=== PATIENT | male | born 1950 | race Caucasian/White ===

== ENCOUNTER 2016-10-17 15:35 | Emergency (ER) | payer MEDICARE, OTHER ==
[~2016-10-17 15:35] MED LIST: ASPI325T PO; BENZ100 PO; GABA300C5 PO; IPRASOL NEB; LEVA750T PO; LISI-515 PO; METO50TA PO; MUCI600T PO; NOVOLOGP2 SQ; PRED10 PO; SYMB80AE INH; VENTAER INH
[2016-10-17 15:39] VITALS: BP 205/115; PULSE 92; RESP 12; TEMP 97.6; O2SAT 95
--- NOTE | 2016-10-17 17:21 | PD ---
HPI Chief Complaint: Injury Time Seen by Provider: 17:17 Travel History International Travel<30 days: No Contact w/Intl Traveler<30days: No Traveled to known affect area: No History of Present Illness HPI Patient comes in for evaluation of left arm swelling that began around 1:00 this afternoon. Patient states he just laid down notices arm starting to swell and reports it has since improved. Patient reports an achiness in his proximal left arm that began approximately an hour ago. Patient denies doing anything for this prior coming to the emergency department. Patient states he contacted his insurance hotline and it was recommended coming to the emergency department to rule out a blood clot. Patient reports associated tingling in the arm. Denies any chest pain, shortness of breath, diaphoresis, nausea, vomiting, or known injury. Patient does report he just started taking clindamycin today for infection on his bilateral lower extremities and abdomen. PFSH Past Medical History Hx Anticoagulant Therapy: Yes (ASPIRIN) Arthritis: No Asthma: Yes Autoimmune Disease: No Anxiety: No Depression: No Heart Rhythm Problems: Yes (possible afib) Cancer: No Cardiovascular Problems: Yes High Cholesterol: Yes Chemotherapy: No Chest Pain: No Congestive Heart Failure: No COPD: Yes Cerebrovascular Accident: Yes Coronary Artery Disease: Yes (valve and cabag) Diabetes: Yes Diminished Hearing: No Diverticulitis: Yes Endocrine: Yes Gastrointestinal Disorders: Yes GERD: No Genitourinary: Yes Hiatal Hernia: No Hypertension: Yes Immune Disorder: No Implanted Vascular Access Dvce: Yes Kidney Stones: Yes Musculoskeletal: Yes Neurologic: Yes (MULTIPLE TIA'S) Psychiatric: No Reproductive: No Respiratory: Yes (COPD) Migraines: No Myocardial Infarction: Yes Radiation Therapy: No Renal Failure: Yes (stage 4 ) Seizures: No Sickle Cell Disease: No Sleep Apnea: No Thyroid Disease: No Ulcer: No Past Surgical History Abdominal Surgery: Yes (HERNIA REPAIR IN 2006) AICD: Yes Arteriovenous Shunt: No Body Medical Devices: MECHANICAL HEART VALVE Cardiac Surgery: Yes (CABG AND HEART VALVE REPLACEMENT IN 2010) Coronary Artery Bypass Graft: Yes (X3) Insulin Pump: No Joint Replacement: No Pacemaker: No Thoracic Surgery: Yes (LAMINECTOMY IN 1984) Valve Replacement: Yes (AORTIC) Other Surgery: Yes Social History Alcohol Use: Yes (SOCIALLY) Tobacco Use: Yes Substance Use: No Allergies-Medications (Allergen,Severity, Reaction): Coded Allergies: HMG-CoA Reductase Inhibitors (Verified Allergy, Severe, Twitching, ) Horse Serum Proteins (Verified Allergy, Severe, CHILDHOOD, DOESN'T REMEMBER., 08/23/16) Metformin (Verified Allergy, Mild, ITCHING/RASH, 08/23/16) Reported Meds & Prescriptions Reported Meds & Active Scripts Active Prednisone 10 Mg Tab 10 Mg PO DAILY Take 4 tabs x 5 days, then 3 tabs x 3 days, then 2 tabs x 3 days, then 1 tab x 3 days then stop. Symbicort Inh (Budesonide/Formoterol Fumarate) 80-4.5 Mcg/Act Aero 2 Puff INH Q12HR Levaquin (Levofloxacin) 750 Mg Tab 750 Mg PO DAILY Duoneb (Ipratropium-Albuterol Neb) 0.5-2.5 Mg/3 Ml Neb 1 Ampule NEB Q6HR WHILE AWAKE NEB Mucinex ER 12 HR (Guaifenesin) 600 Mg Jahaira 600 Mg PO BID Tessalon Perles (Benzonatate) 100 Mg Cap 100 Mg PO TID Reported Gabapentin 300 Mg Cap 300 Mg PO BID Metoprolol Tartrate 50 Mg Tab 50 Mg PO BID Lisinopril 20 Mg Tab 20 Mg PO DAILY Novolog Inj (Insulin Aspart) 1,000 Unit/10 Ml Vial 1-9 Units SQ TIDAC Max dose at bedtime:( )units; sugars less than 70,(0)units; sugars 150-199,(1) unit; sugars 200-249,(3) units; sugars 250-299,(5) units; sugars 300-349,(7) units; sugars greater than 349,(9) units Aspirin 325 Mg Tab 325 Mg PO DAILY Ventolin Hfa 18 GM Inh (Albuterol Sulfate) 90 Mcg/Act Aer 2 Puff INH Q4H PRN Review of Systems Except as stated in HPI: all other systems reviewed are Neg Physical Exam Narrative GENERAL: Well-developed, well nourished, in no acute distress, and non-ill appearing. SKIN: Warm and dry. Minimal soft tissue swelling noted left hand compared to the right. HEAD: Atraumatic. Normocephalic. EYES: Pupils equal and round. EOMI. No scleral icterus. No injection or drainage. ENT: No nasal bleeding or discharge. Mucous membranes pink and moist. NECK: Trachea midline. No JVD. Supple. No nuclear rigidity. CARDIOVASCULAR: Regular rate and rhythm. No murmur appreciated. RESPIRATORY: No accessory muscle use. No respiratory distress. Clear to auscultation. Breath sounds equal bilaterally. GASTROINTESTINAL: Abdomen soft, non-tender, nondistended. Hepatic and splenic margins not palpable. No pulsatile mass. MUSCULOSKELETAL: No obvious deformities. No clubbing. No cyanosis. No edema. Full range of motion. Shoulder:FROM equal BL with passive flexion, extension, Abduction, Adduction, internal/external rotation, and pronation/supination. Sensation equal BL deltoid muscles. Pulses equal BL distal to injury. Capillary refill less than 2 seconds distal to injury and equal BL. FROM distal to injury and equal BL. Strength distal to injury equal BL. NV intact distal to injury equal BL. Flexion and extension of thumb equal BL. Equal strength and movement with abduction/adductions of BL fingers. [employer] Inspector strength equal BL. NEUROLOGICAL: Awake and alert. No obvious cranial nerve deficits. Motor grossly within normal limits. Normal speech. PSYCHIATRIC: Appropriate mood and affect; insight and judgment normal. Data Data Last Documented VS Vital Signs Date Time Temp Pulse Resp B/P Pulse Ox O2 Delivery O2 Flow Rate FiO2 10/17/16 17:40 86 16 133/72 97 Room Air 134/76 10/17/16 15:39 97.6 Orders Us Arm Venous Doppler (10/17/16 ) Electrocardiogram (10/17/16 17:21) Basic Metabolic Panel (Bmp) (10/17/16 17:21) Ckmb (Isoenzyme) Profile (10/17/16 17:21) Complete Blood Count With Diff (10/17/16 17:) Magnesium (Mg) (10/17/16 17:21) Prothrombin Time / Inr (Pt) (10/17/16 17:21) Act Partial Throm Time (Ptt) (10/17/16 17:21) Troponin I (10/17/16 17:21) Chest, Single Ap (10/17/16 17:21) Ecg Monitoring (10/17/16 17:21) Bilateral Bp Monitoring (10/17/16 17:21) Iv Access Insert/Monitor (10/17/16 17:21) Oximetry (10/17/16 17:21) Oxygen Administration (10/17/16 17:21) Sodium Chloride 0.9% Flush (Ns Flush) (10/17/16 17:30) Labs Laboratory Tests Test 10/17/16 17:30 White Blood Count 17.2 TH/MM3 Red Blood Count 5.34 MIL/MM3 Hemoglobin 16.0 GM/DL Hematocrit 47.5 % Mean Corpuscular Volume 89.0 FL Mean Corpuscular Hemoglobin 30.1 PG Mean Corpuscular Hemoglobin 33.8 % Concent Red Cell Distribution Width 13.3 % Platelet Count 251 TH/MM3 Mean Platelet Volume 9.3 FL Neutrophils (%) (Auto) 78.3 % Lymphocytes (%) (Auto) 13.8 % Monocytes (%) (Auto) 6.5 % Eosinophils (%) (Auto) 1.1 % Basophils (%) (Auto) 0.3 % Neutrophils # (Auto) 13.5 TH/MM3 Lymphocytes # (Auto) 2.4 TH/MM3 Monocytes # (Auto) 1.1 TH/MM3 Eosinophils # (Auto) 0.2 TH/MM3 Basophils # (Auto) 0.1 TH/MM3 CBC Comment DIFF FINAL Differential Comment MDM Medical Decision Making Medical Screen Exam Complete: Yes Emergency Medical Condition: Yes Differential Diagnosis DVT, acute cardiac syndrome, atypical chest pain, cellulitis, abscess, other Narrative Course Patient was seen and examined. Initial laboratory and radiological studies were ordered. Patient was signed out to Dr. Bowen. Please see his doctor dictation for final diagnosis and disposition. Rodo Davis Oct 17, 2016 17:21
[2016-10-17] MEDS ORDERED: SODIUM CHLORIDE 0.9% FLUSH 5 ML FLUSH IVF PRN (17:30)
[2016-10-17 17:40] VITALS: BP_SYST 133; BP_SYST 134; BP_SYST 135; BP_DIAS 72; BP_DIAS 76; BP_DIAS 85; PULSE 86; RESP 16; O2SAT 96; O2SAT 97
[2016-10-17 17:42] LABS: AUTOMATED NEUTROPHIL # 13.5 TH/MM3 (1.8-7.7); BASOPHIL # 0.1 TH/MM3 (0-0.2); BASOPHIL % 0.3 % (0.0-2.0); EOSINOPHIL # 0.2 TH/MM3 (0-0.4); EOSINOPHIL % 1.1 % (0.0-4.0); HEMATOCRIT 47.5 % (39.0-51.0); HEMO FLAGS DIFF FINAL; LYMPH % 13.8 % (9.0-44.0); LYMPHOCYTE # 2.4 TH/MM3 (1.0-4.8); MEAN CORPUSCULAR HEMOGLOBIN 30.1 PG (27.0-34.0); MEAN CORPUSCULAR HGB CONC 33.8 % (32.0-36.0); MONO % 6.5 % (0.0-8.0); NEUT % 78.3 % (16.0-70.0); PLATELET COUNT 251 TH/MM3 (150-450); RED BLOOD COUNT 5.34 MIL/MM3 (4.50-5.90); RED CELL DISTRIBUTION WIDTH 13.3 % (11.6-17.2); WHITE BLOOD COUNT 17.2 TH/MM3 (4.0-11.0)
--- NOTE | 2016-10-17 17:53 | RADRPT ---
EXAM DATE/TIME: 10/17/2016 17:20 [facility] COMPARISON: CHEST SINGLE AP, September 04, 2014, 9:41. CHEST SINGLE AP, August 23, 2016, 21:54. INDICATIONS : Chest pain MEDICAL HISTORY : None. SURGICAL HISTORY : None. ENCOUNTER: Initial ACUITY: 1 day PAIN SCORE: 7/10 LOCATION: Bilateral chest FINDINGS: Median sternotomy wires are noted status post cardiac surgery. The heart is stable. The pulmonary va scular pattern is normal. There is a tiny nodule within the right upper lung field which is unchange d in appearance compared to the previous examination in August of 2014 and likely represents a gran uloma. The lungs are otherwise clear. CONCLUSION: 1. Stable tiny right apical nodule which is unchanged compared to 08/15/2014 and likely represents a granuloma. 2. No acute focal pulmonary infiltrate or pulmonary vascular congestion. Bryan Puckett MD on October 17, 2016 at 17:49 Board Certified Radiologist. This report was verified electronically.
[2016-10-17 18:00] LABS: APTT (PATIENT) 26.8 SEC (24.3-30.1); PROTHROMBIN TIME - PATIENT 10.7 SEC (9.8-11.6)
--- NOTE | 2016-10-17 18:28 | RADRPT ---
EXAM DATE/TIME: 10/17/2016 17:39 [facility] COMPARISON: No previous studies available for comparison. INDICATIONS : Left upper extremity swelling. MEDICAL HISTORY : Myocardial infarction. Diverticulitis. Hypercholesterolemia. TIAs. Head trauma. CAD. Afib. Asthma. Dy spnea. Stage IV renal disesae. Renal calcui. Diabetes. Anticoagulant therapy, Aspirin 325mg. SURGICAL HISTORY : CABG Aortic valve replacement. Internal defibrillator. Laminectomy. Hernia repair. Orthopedic surg braulio, bilateral wrist. Blood transfusions. ENCOUNTER: Initial ACUITY: 1 day PAIN SCORE: 3/10 LOCATION: Left arm. FINDINGS: There is spontaneous flow documented in the brachial, basilic, cephalic, axillary, and subclavian vei ns. The vessels are compressible and augmentation response is documented. No filling defects are se en. The flow is phasic with respiration. Direction of flow in the jugular vein is caudal. CONCLUSION: Normal examination. Martin Martinez MD on October 17, 2016 at 18:27 Board Certified Radiologist. This report was verified electronically.
--- NOTE | 2016-10-17 18:57 | PD ---
Physical Exam Date Seen by Provider: Oct 17, 2016 Time Seen by Provider: 18:55 Narrative The patient is a 66 year-old male was initially evaluated by the mid-level provider, please refer to the initial history, physical, diagnostic evaluation, and treatment modality plan. The patient was signed out at 7 PM laboratory evaluation and disposition pending. Data Data Last Documented VS Vital Signs Date Time Temp Pulse Resp B/P Pulse Ox O2 Delivery O2 Flow Rate FiO2 10/17/16 20:47 98.3 82 18 144/56 95 Room Air Orders Us Arm Venous Doppler (10/17/16 ) Electrocardiogram (10/17/16 17:21) Basic Metabolic Panel (Bmp) (10/17/16 17:21) Ckmb (Isoenzyme) Profile (10/17/16 17:21) Complete Blood Count With Diff (10/17/16 17:21) Magnesium (Mg) (10/17/16 17:21) Prothrombin Time / Inr (Pt) (10/17/16 17:21) Act Partial Throm Time (Ptt) (10/17/16 17:21) Troponin I (10/17/16 17:21) Chest, Single Ap (10/17/16 17:21) Ecg Monitoring (10/17/16 17:21) Bilateral Bp Monitoring (10/17/16 17:21) Iv Access Insert/Monitor (10/17/16 17:21) Oximetry (10/17/16 17:21) Oxygen Administration (10/17/16 17:21) Sodium Chloride 0.9% Flush (Ns Flush) (10/17/16 17:30) Clindamycin Inj (Cleocin Inj) (10/17/16 19:15) Labs Laboratory Tests Test 10/17/16 10/17/16 17:30 20:20 White Blood Count 17.2 TH/MM3 Red Blood Count 5.34 MIL/MM3 Hemoglobin 16.0 GM/DL Hematocrit 47.5 % Mean Corpuscular Volume 89.0 FL Mean Corpuscular Hemoglobin 30.1 PG Mean Corpuscular Hemoglobin 33.8 % Concent Red Cell Distribution Width 13.3 % Platelet Count 251 TH/MM3 Mean Platelet Volume 9.3 FL Neutrophils (%) (Auto) 78.3 % Lymphocytes (%) (Auto) 13.8 % Monocytes (%) (Auto) 6.5 % Eosinophils (%) (Auto) 1.1 % Basophils (%) (Auto) 0.3 % Neutrophils # (Auto) 13.5 TH/MM3 Lymphocytes # (Auto) 2.4 TH/MM3 Monocytes # (Auto) 1.1 TH/MM3 Eosinophils # (Auto) 0.2 TH/MM3 Basophils # (Auto) 0.1 TH/MM3 CBC Comment DIFF FINAL Differential Comment Prothrombin Time 10.7 SEC Prothromb Time International 1.0 RATIO Ratio Activated Partial 26.8 SEC Thromboplast Time Sodium Level 141 MEQ/L Potassium Level 4.3 MEQ/L Chloride Level 107 MEQ/L Carbon Dioxide Level 25.6 MEQ/L Anion Gap 8 MEQ/L Blood Urea Nitrogen 17 MG/DL Creatinine 1.17 MG/DL Estimat Glomerular Filtration 62 ML/MIN Rate Random Glucose 118 MG/DL Calcium Level 8.5 MG/DL Magnesium Level 2.1 MG/DL Total Creatine Kinase 56 U/L Troponin I LESS THAN 0.02 NG/ML MDM Medical Record Reviewed: Yes Supervised Visit with FAITH: Yes Interpretation(s) EKG reveals normal sinus rhythm with a rate 81. Q wave in lead 3. Inverted T- wave in 1 and aVL. Chest x-ray reveals chronic pulmonary nodule, probably granuloma, no acute findings. Ultrasound left upper extremity is negative for DVT. Last Impressions Chest X-Ray 10/17/16 1721 Signed Impressions: Service Date/Time: Monday, October 17, 2016 17:20 - CONCLUSION: 1. Stable tiny right apical nodule which is unchanged compared to 08/15/2014 and likely represents a granuloma. 2. No acute focal pulmonary infiltrate or pulmonary vascular congestion. Bryan Puckett MD Upper Extremity Ultrasound 10/17/16 0000 Signed Impressions: Service Date/Time: Monday, October 17, 2016 17:39 - CONCLUSION: Normal examination. Martin Martinez MD Laboratory Tests Test 10/17/16 10/17/16 17:30 20:20 White Blood Count 17.2 TH/MM3 Red Blood Count 5.34 MIL/MM3 Hemoglobin 16.0 GM/DL Hematocrit 47.5 % Mean Corpuscular Volume 89.0 FL Mean Corpuscular Hemoglobin 30.1 PG Mean Corpuscular Hemoglobin 33.8 % Concent Red Cell Distribution Width 13.3 % Platelet Count 251 TH/MM3 Mean Platelet Volume 9.3 FL Neutrophils (%) (Auto) 78.3 % Lymphocytes (%) (Auto) 13.8 % Monocytes (%) (Auto) 6.5 % Eosinophils (%) (Auto) 1.1 % Basophils (%) (Auto) 0.3 % Neutrophils # (Auto) 13.5 TH/MM3 Lymphocytes # (Auto) 2.4 TH/MM3 Monocytes # (Auto) 1.1 TH/MM3 Eosinophils # (Auto) 0.2 TH/MM3 Basophils # (Auto) 0.1 TH/MM3 CBC Comment DIFF FINAL Differential Comment Prothrombin Time 10.7 SEC Prothromb Time International 1.0 RATIO Ratio Activated Partial 26.8 SEC Thromboplast Time Sodium Level 141 MEQ/L Potassium Level 4.3 MEQ/L Chloride Level 107 MEQ/L Carbon Dioxide Level 25.6 MEQ/L Anion Gap 8 MEQ/L Blood Urea Nitrogen 17 MG/DL Creatinine 1.17 MG/DL Estimat Glomerular Filtration 62 ML/MIN Rate Random Glucose 118 MG/DL Calcium Level 8.5 MG/DL Magnesium Level 2.1 MG/DL Total Creatine Kinase 56 U/L Troponin I LESS THAN 0.02 NG/ML Differential Diagnosis Differential diagnosis includes cellulitis, allergic reaction, DVT, lymphedema, abscess, impetigo. Narrative Course I, Dr. Bowen, have reviewed the advance practice practitioner's documentation and am in agreement, met with the patient face to face, made the diagnosis, and the medical decision making was done by me. *My assessment and Findings: 66 year-old male was initially evaluated by the mid -level provider, please refer to initial history, physical, diagnostic evaluation, treatment modality plan. Patient does have wounds on the legs bilaterally a as well as one on the anterior aspect of the abdomen, one on the left hand, 1 on the left forearm. Some of them appear crusted over and impetigo -like, others have mild erythema around them, but no underlying fluctuance or abscess. These may be superficial wound secondary to staph. The patient was administered clindamycin 60 mg intravenously, he was prescribed clindamycin yesterday for his wounds. Ultrasound is negative for DVT. Chest x-rays unremarkable, no evidence of Pancoast tumor. Patient is stable for outpatient follow-up. Diagnosis Primary Impression: Infected wound Patient Instructions: General Instructions Additional Instruction: Continue clindamycin. Follow-up with your primary physician. Please provide the patient a copy of his labs, chest x-ray results, and ultrasound results at discharge. Med/Other Pt SpecificInfo: No Change to Meds Disposition: 01 DISCHARGE HOME Condition: Stable Terrance Bowen MD Oct 17, 2016 18:57
[2016-10-17] MEDS ORDERED: CLINDAMYCIN INJ 600 MG in SODIUM CHLORIDE 0.9% INJ 100 ML IV ONE (19:15)
[2016-10-17] MEDS ORDERED: CARV12.52 PO (19:38)
[2016-10-17] MEDS ORDERED: CLIN1CAP6 PO (19:38)
[2016-10-17 20:47] VITALS: BP 144/56; PULSE 82; RESP 18; TEMP 98.3; O2SAT 95
[2016-10-17 21:27] LABS: ANION GAP 8 MEQ/L (5-15); BICARBONATE 25.6 MEQ/L (21.0-32.0); BLOOD UREA NITROGEN 17 MG/DL (7-18); CHLORIDE 107 MEQ/L (98-107); GLOMERULAR FILTRATION RATE 62 ML/MIN (>89); MAGNESIUM 2.1 MG/DL (1.5-2.5); POTASSIUM 4.3 MEQ/L (3.5-5.1); SODIUM (NA) 141 MEQ/L (136-145)
[2016-10-17 21:33] LABS: CREATINE KINASE 56 U/L (39-308)
--- NOTE | 2016-10-18 22:39 | EKG ---
Date Performed: 10/17/2016 Time Performed: 17:35:13 PTAGE: 66 years EKG: Sinus rhythm MODERATE T-WAVE ABNORMALITY, CONSIDER LATERAL ISCHEMIA ABNORMAL ECG PREVIOUS TRACING : 08/23/2016 21.21 Compared to prior tracing no significant change DOCTOR: David Valle Interpretating Date/Time 10/18/2016 22:36:14
== END 2016-10-17 23:41 | disposition home or self-care (01) ==
LOC: NEPB 15:35
DX: S50.912A Unspecified superficial injury of left forearm, initial encounter (principal); S80.922A Unspecified superficial injury of left lower leg, initial encounter; S80.921A Unspecified superficial injury of right lower leg, initial encounter; S30.92XA Unspecified superficial injury of abdominal wall, initial encounter; S60.922A Unspecified superficial injury of left hand, initial encounter; R94.31 Abnormal electrocardiogram [ECG] [EKG]; J44.9 Chronic obstructive pulmonary disease, unspecified; I10 Essential (primary) hypertension; I25.10 Atherosclerotic heart disease of native coronary artery without angina pectoris; X58.XXXA Exposure to other specified factors, initial encounter; Z95.1 Presence of aortocoronary bypass graft; Z72.0 Tobacco use
CPT/HCPCS: 71010; 80048; 82550; 83735; 84484; 85025; 85610; 85730; 93005; 93971; 96374

== ENCOUNTER 2016-12-08 11:08 | Inpatient (IN) | payer OTHER, MEDICARE ==
[~2016-12-08] VITALS: Ht 175.3 cm; Wt 88.1 kg
[~2016-12-08 11:08] MED LIST changes: -BENZ100 PO; +CARV12.52 PO; +CLIN1CAP6 PO; -LEVA750T PO; -MUCI600T PO; -PRED10 PO
[2016-12-08 11:09] VITALS: BP 126/95; TEMP 97.9
[2016-12-08] MEDS ORDERED: SODIUM CHLORIDE 0.9% FLUSH 5 ML FLUSH IVF PRN ×3 (11:15→19:45)
[2016-12-08 11:27] LABS: AUTOMATED NEUTROPHIL # 6.5 TH/MM3 (1.8-7.7); BASOPHIL # 0.1 TH/MM3 (0-0.2); BASOPHIL % 1.3 % (0.0-2.0); EOSINOPHIL # 0.3 TH/MM3 (0-0.4); EOSINOPHIL % 2.8 % (0.0-4.0); HEMATOCRIT 45.2 % (39.0-51.0); HEMO FLAGS DIFF FINAL; LYMPH % 25.1 % (9.0-44.0); LYMPHOCYTE # 2.6 TH/MM3 (1.0-4.8); MEAN CELL VOLUME 89.9 FL (80.0-100.0); MEAN CORPUSCULAR HEMOGLOBIN 31.1 PG (27.0-34.0); MEAN CORPUSCULAR HGB CONC 34.6 % (32.0-36.0); MONO % 8.3 % (0.0-8.0); NEUT % 62.5 % (16.0-70.0); PLATELET COUNT 192 TH/MM3 (150-450); RED BLOOD COUNT 5.02 MIL/MM3 (4.50-5.90); RED CELL DISTRIBUTION WIDTH 13.4 % (11.6-17.2); WHITE BLOOD COUNT 10.3 TH/MM3 (4.0-11.0)
--- NOTE | 2016-12-08 11:31 | RADRPT ---
EXAM DATE/TIME: 12/08/2016 11:25 [facility] COMPARISON: CHEST SINGLE AP, October 17, 2016, 17:20. INDICATIONS : Patient felt like he had stroke symptoms this morning. MEDICAL HISTORY : cardiac disorders, hypertension, diabetes SURGICAL HISTORY : aortic valve replacement, cabg ENCOUNTER: Initial ACUITY: 1 day PAIN SCORE: 0/10 LOCATION: chest FINDINGS: A single view of the chest demonstrates the lungs to be symmetrically aerated without evidence of mas s, infiltrate or effusion. Sternal wires from previous bypass are noted. The cardiomediastinal cont ours are unremarkable. Osseous structures are intact. CONCLUSION: No acute disease. Kemal Prado MD FACR on December 08, 2016 at 11:29 Board Certified Radiologist. This report was verified electronically.
--- NOTE | 2016-12-08 11:38 | PD ---
HPI Chief Complaint: Neuro Symptoms/ Deficits Time Seen by Provider: 11:11 Travel History International Travel<30 days: No Contact w/Intl Traveler<30days: No Traveled to known affect area: No History of Present Illness HPI Patient is a 66-year-old male with history of HTN, HLD, DM, COPD still smoking, previous CVA without baseline deficit who presents the emergency department with neurologic symptoms. Starting yesterday at approximately 8 PM patient began to notice left-sided facial weakness, slurred speech, left arm and leg weakness. Patient's symptoms have slightly improved since then and the speech is now resolved. His facial droop and left-sided arm and leg weakness still persist. He was seen at [facility] for possible CVA, TIA. [facility] Past Medical History Hx Anticoagulant Therapy: Yes (ASPIRIN) Arthritis: No Asthma: Yes Autoimmune Disease: No Anxiety: No Depression: No Heart Rhythm Problems: Yes (possible afib) Cancer: No Cardiovascular Problems: Yes High Cholesterol: Yes Chemotherapy: No Chest Pain: No Congestive Heart Failure: No COPD: Yes Cerebrovascular Accident: Yes Coronary Artery Disease: Yes (valve and cabag) Diabetes: Yes Patient Takes Glucophage: No Diminished Hearing: No Diverticulitis: Yes Endocrine: Yes Gastrointestinal Disorders: Yes GERD: No Genitourinary: Yes Hiatal Hernia: No Hypertension: Yes Immune Disorder: No Implanted Vascular Access Dvce: Yes Kidney Stones: Yes Musculoskeletal: Yes Neurologic: Yes (MULTIPLE TIA'S) Psychiatric: No Reproductive: No Respiratory: Yes (COPD) Migraines: No Myocardial Infarction: Yes Radiation Therapy: No Renal Failure: Yes (stage 4 ) Seizures: No Sickle Cell Disease: No Sleep Apnea: No Thyroid Disease: No Ulcer: No Past Surgical History Abdominal Surgery: Yes (HERNIA REPAIR IN 2006) AICD: Yes Arteriovenous Shunt: No Body Medical Devices: MECHANICAL HEART VALVE Cardiac Surgery: Yes (CABG AND HEART VALVE REPLACEMENT IN 2010) Coronary Artery Bypass Graft: Yes (X3) Insulin Pump: No Joint Replacement: No Pacemaker: No Thoracic Surgery: Yes (LAMINECTOMY IN 1984) Valve Replacement: Yes (AORTIC) Other Surgery: Yes Social History Alcohol Use: Yes (SOCIALLY) Tobacco Use: Yes (1ppd) Substance Use: No Allergies-Medications (Allergen,Severity, Reaction): Coded Allergies: HMG-CoA Reductase Inhibitors (Verified Allergy, Severe, Twitching, ) Horse Serum Proteins (Verified Allergy, Severe, CHILDHOOD, DOESN'T REMEMBER., 08/23/16) Metformin (Verified Allergy, Mild, ITCHING/RASH, 08/23/16) Reported Meds & Prescriptions Reported Meds & Active Scripts Active Symbicort Inh (Budesonide/Formoterol Fumarate) 80-4.5 Mcg/Act Aero 2 Puff INH Q12HR Duoneb (Ipratropium-Albuterol Neb) 0.5-2.5 Mg/3 Ml Neb 1 Ampule NEB Q6HR WHILE AWAKE NEB Reported Carvedilol 12.5 Mg Tab Unknown Dose PO DAILY Gabapentin 300 Mg Cap 300 Mg PO BID Lisinopril 20 Mg Tab 20 Mg PO DAILY Novolog Inj (Insulin Aspart) 1,000 Unit/10 Ml Vial 1-9 Units SQ TIDAC Max dose at bedtime:( )units; sugars less than 70,(0)units; sugars 150-199,(1) unit; sugars 200-249,(3) units; sugars 250-299,(5) units; sugars 300-349,(7) units; sugars greater than 349,(9) units Aspirin 325 Mg Tab 325 Mg PO DAILY Ventolin Hfa 18 GM Inh (Albuterol Sulfate) 90 Mcg/Act Aer 2 Puff INH Q4H PRN Review of Systems Except as stated in HPI: all other systems reviewed are Neg Physical Exam Narrative GENERAL: Stoic male smelling of tobacco in no acute distress SKIN: Focused skin exam is Warm and dry. HEAD: Normocephalic. EYES: Pupils equal and round. No scleral icterus. No injection or drainage. ENT: No nasal bleeding or discharge. Mucous membranes pink and moist. NECK: Supple CARDIOVASCULAR: Regular rate and rhythm. No murmur appreciated. RESPIRATORY: No accessory muscle use. Wheezing and rhonchi GASTROINTESTINAL: Abdomen soft, non-tender, nondistended. MUSCULOSKELETAL: No obvious deformities. No edema. NEUROLOGICAL: Awake and alert. Subtle flattening of the left nasal labial fold otherwise cranial nerves intact. 4+ out of 5 migration agent strength in the left upper extremity, otherwise extremity's are intact. Normal speech. No ataxia. Sensation intact. PSYCHIATRIC: Appropriate mood and affect; insight and judgment normal. Data Data Last Documented VS Vital Signs Date Time Temp Pulse Resp B/P Pulse Ox O2 Delivery O2 Flow Rate FiO2 12/08/16 12:00 78 18 165/82 95 Room Air 12/08/16 11:09 97.9 Orders Electrocardiogram (12/08/16 11:11) Prothrombin Time / Inr (Pt) (12/08/16 11:11) Act Partial Throm Time (Ptt) (12/08/16 11:11) Complete Blood Count With Diff (12/08/16 11:11) Basic Metabolic Panel (Bmp) (12/08/16 11:11) Troponin I (12/08/16 11:11) Ct Brain W/O Iv Contrast(Rout) (12/08/16 11:11) Chest, Single Ap (12/08/16 11:11) Ecg Monitoring (12/08/16 11:11) Iv Access Insert/Monitor (12/08/16 11:11) Oximetry (12/08/16 11:11) Sodium Chloride 0.9% Flush (Ns Flush) (12/08/16 11:15) Labs Laboratory Tests Test 12/08/16 11:15 White Blood Count 10.3 TH/MM3 Red Blood Count 5.02 MIL/MM3 Hemoglobin 15.6 GM/DL Hematocrit 45.2 % Mean Corpuscular Volume 89.9 FL Mean Corpuscular Hemoglobin 31.1 PG Mean Corpuscular Hemoglobin 34.6 % Concent Red Cell Distribution Width 13.4 % Platelet Count 192 TH/MM3 Mean Platelet Volume 9.3 FL Neutrophils (%) (Auto) 62.5 % Lymphocytes (%) (Auto) 25.1 % Monocytes (%) (Auto) 8.3 % Eosinophils (%) (Auto) 2.8 % Basophils (%) (Auto) 1.3 % Neutrophils # (Auto) 6.5 TH/MM3 Lymphocytes # (Auto) 2.6 TH/MM3 Monocytes # (Auto) 0.9 TH/MM3 Eosinophils # (Auto) 0.3 TH/MM3 Basophils # (Auto) 0.1 TH/MM3 CBC Comment DIFF FINAL Differential Comment Prothrombin Time 10.7 SEC Prothromb Time International 1.0 RATIO Ratio Activated Partial 27.2 SEC Thromboplast Time Sodium Level 140 MEQ/L Potassium Level 4.2 MEQ/L Chloride Level 106 MEQ/L Carbon Dioxide Level 25.9 MEQ/L Anion Gap 8 MEQ/L Blood Urea Nitrogen 18 MG/DL Creatinine 1.25 MG/DL Estimat Glomerular Filtration 58 ML/MIN Rate Random Glucose 126 MG/DL Calcium Level 9.0 MG/DL Troponin I LESS THAN 0.02 NG/ML MDM Medical Decision Making Medical Screen Exam Complete: Yes Emergency Medical Condition: Yes Medical Record Reviewed: Yes Differential Diagnosis 66-year-old male with history of CAD, HTN, HLD, previous CVA, DM, COPD still smoking here with new onset left-sided facial droop, left arm/leg weakness, and speech slurring starting yesterday evening, symptoms gradually improving. Patient still has deficit. Differential includes CVA, TIA, electrolyte abnormality. No report of seizure, Kyle paralysis. Narrative Course Patient placed on monitor, IV established and blood obtained. A twelve-lead EKG shows sinus rhythm without notable ST or T-wave abnormalities and normal intervals. CBC, BMP, coags, troponin were obtained and unremarkable. Portable chest x-ray obtained that by my read shows hyperinflation but no acute abnormalities. CT of the brain showed no acute abnormalities. Given patient's persistent deficit will be admitted for MRI and further evaluation for CVA. Diagnosis Primary Impression: CVA (cerebral vascular accident) Qualified Code: I63.9 - Cerebrovascular accident (CVA), unspecified mechanism Additional Impressions: Facial droop Left arm weakness Admitting Information Admitting Physician Requests: Admit Hannah Vázquez MD Dec 08, 2016 11:38
[2016-12-08 11:44] LABS: ANION GAP 8 MEQ/L (5-15); BICARBONATE 25.9 MEQ/L (21.0-32.0); BLOOD UREA NITROGEN 18 MG/DL (7-18); CHLORIDE 106 MEQ/L (98-107); GLOMERULAR FILTRATION RATE 58 ML/MIN (>89); POTASSIUM 4.2 MEQ/L (3.5-5.1); SODIUM (NA) 140 MEQ/L (136-145)
[2016-12-08 11:54] LABS: APTT (PATIENT) 27.2 SEC (24.3-30.1); PROTHROMBIN TIME - PATIENT 10.7 SEC (9.8-11.6)
[2016-12-08 12:00] VITALS: BP 165/82; PULSE 78; RESP 18; O2SAT 95
--- NOTE | 2016-12-08 12:19 | RADRPT ---
EXAM DATE/TIME: 12/08/2016 12:09 [facility] COMPARISON: CT BRAIN W/O CONTRAST, September 04, 2014, 9:04. INDICATIONS : Left facial, arm, leg weakness. Slurred speech. RADIATION DOSE: 47.05 CTDIvol (mGy) MEDICAL HISTORY : Cerebrovascular disease. Hypertension. Diabetes mellitus type 2. SURGICAL HISTORY : CABG ENCOUNTER: Initial ACUITY: 1 day PAIN SCALE: 0/10 LOCATION: cranial TECHNIQUE: Multiple contiguous axial images were obtained of the head. Using automated exposure control and adj ustment of the mA and/or kV according to patient size, radiation dose was kept as low as reasonably a chievable to obtain optimal diagnostic quality images. FINDINGS: CEREBRUM: Periventricular low attenuation change involving the periventricular white matter both cerebral hemis pheres slightly more focal within the left parietal lobe. This has progressed from the prior study. T he ventricles are normal for age. No evidence of midline shift, mass lesion, hemorrhage or acute inf arction. No extra-axial fluid collections are seen. POSTERIOR FOSSA: The cerebellum and brainstem are intact. The 4th ventricle is midline. The cerebellopontine angle i s unremarkable. EXTRACRANIAL: The visualized portion of the orbits is intact. SKULL: The calvaria is intact. No evidence of skull fracture. CONCLUSION: 1. Chronic small vessel ischemic change. 2. No acute intracranial abnormality. Ck Padilla Jr., MD on December 08, 2016 at 12:15 Board Certified Radiologist. This report was verified electronically.
[2016-12-08 14:00] VITALS: BP 144/69; PULSE 64; RESP 18; O2SAT 98
--- NOTE | 2016-12-08 15:51 | RADRPT ---
EXAM DATE/TIME: 12/08/2016 14:20 [facility] COMPARISON: US CAROTID ARTERIES, September 04, 2014, 12:40. INDICATIONS : Headache. MEDICAL HISTORY : Afib. Diabetic. Hypertension. SURGICAL HISTORY : CABG. Valve replacement. Carpal tunnel. Laminectomy. Hernia. ENCOUNTER: Initial ACUITY: 1 day PAIN SCORE: 4/10 LOCATION: Bilateral neck PEAK SYSTOLIC VELOCITIES (cm/sec): ICA/CCA RATIO: Right: 0.8 Left: 0.7 ICA: Right: 82 Left: 48 CCA: Right: 67 Left: 70 ECA: Right: 74 Left: 90 VERTEBRAL: Right: 54 antegrade Left: 34 antegrade Elevated flow velocities and ICA/CCA ratios have been found to correlate with increased degrees of vessel stenosis, calculated as percentage of diameter relative to a normal segment of distal ICA/CCA FINDINGS: RIGHT CAROTID: There is no evidence for a hemodynamically significant carotid stenosis. Minimal int imal hyperplasia is present with scattered calcific plaque. LEFT CAROTID: There is no evidence for a hemodynamically significant carotid stenosis. Minimal inti mal hyperplasia is present with scattered calcific plaque. VERTEBRAL ARTERIES: Flow is antegrade in both vertebral arteries. MISCELLANEOUS: There are no ancillary masses or adenopathy. CONCLUSION: Negative examination for a hemodynamically significant carotid stenosis. Kemal Prado MD FACR Board Certified Radiologist. This report was verified electronically.
[2016-12-08 16:00] VITALS: BP 152/85; PULSE 64; RESP 16; O2SAT 97
[2016-12-08] MEDS ORDERED: SODIUM CHLOR 0.9% 1000 ML INJ 1,000 ML IV SCH ×2 (16:15→19:32)
[2016-12-08] MEDS ORDERED: ALBUTEROL SULFATE 90 MCG/ACT HFA 8 GM INHALER INH PRN (17:30)
--- NOTE | 2016-12-08 17:32 | HHI.HP ---
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 Patient takes aspirin 325 mg daily Last night complained of difficulty getting words out associated with left facial droop and left-sided weakness upper extremity weaker than the left lower extremity that lasted until this morning. There was no nausea vomiting headache fever or chills. Patient finally came to the emergency room where now on examine feels better with symptoms much better but now complained of headache parieto-occipital area. Patient is admitted for further evaluation and management. Review of Systems Constitutional: DENIES: Diaphoretic episodes, Fatigue, Fever, Weight gain, Weight loss, Chills, Dizziness, Change in appetite, Night Sweats Endocrine: DENIES: Heat/cold intolerance, Polydipsia, Polyuria, Polyphagia Eyes: DENIES: Blurred vision, Diplopia, Eye inflammation, Eye pain, Vision loss , Photosensitivity, Double Vision Ears, nose, mouth, throat: DENIES: Tinnitus, Hearing loss, Vertigo, Nasal discharge, Oral lesions, Throat pain, Hoarseness, Ear Pain, Running Nose, Epistaxis, Sinus Pain, Toothache, Odynophagia Respiratory: DENIES: Apneas, Cough, Snoring, Wheezing, Hemoptysis, Sputum production, Shortness of breath Cardiovascular: DENIES: Chest pain, Palpitations, Syncope, Dyspnea on Exertion , PND, Lower Extremity Edema, Orthopnea, Claudication Gastrointestinal: DENIES: Abdominal pain, Black stools, Bloody stools, Constipation, Diarrhea, Nausea, Vomiting, Difficulty Swallowing, Anorexia Genitourinary: DENIES: Sexual dysfunction, Urinary frequency, Urinary incontinence, Urgency, Hematuria, Dysuria, Nocturia, Penile Discharge, Testicular Pain, Testicular Swelling Musculoskeletal: DENIES: Joint pain, Muscle aches, Stiffness, Joint Swelling, Back pain, Neck pain Integumentary: DENIES: Abnormal pigmentation, Nail changes, Pruritus, Rash Hematologic/lymphatic: DENIES: Bruising, Lymphadenopathy Immunologic/allergic: DENIES: Eczema, Urticaria Neurologic: DENIES: Abnormal gait, Headache, Localized weakness, Paresthesias, Seizures, Speech Problems, Tremor, Poor Balance Psychiatric: DENIES: Anxiety, Confusion, Mood changes, Depression, Hallucinations, Agitation, Suicidal Ideation, Homicidal Ideation, Delusions Past Family Social History Past Medical History Valvular heart disease aortic stenosis status post porcine valve replacement in 2006 Hypertension Diabetes type 2 Diverticulitis COPD ? Multiple sclerosis History of CVA 4 years ago with very very minimal left-sided residual weakness Past Surgical History Aortic valve replacement in 2006 Left and right carpal tunnel surgery L5-S1 laminectomy Umbilical hernia repair Facial reconstructive surgery Reported Medications Symbicort Lisinopril 20 mg daily Gabapentin Ventolin Ipratropium Carvedilol 12.5 mg daily NovoLog insulins Aspirin 325 mg daily Allergies: Coded Allergies: HMG-CoA Reductase Inhibitors (Verified Allergy, Severe, Twitching, ) Horse Serum Proteins (Verified Allergy, Severe, CHILDHOOD, DOESN'T REMEMBER., 08/23/16) Metformin (Verified Allergy, Mild, ITCHING/RASH, 08/23/16) Family History Noncontributory Social History Smoker T quarter pack per day Very occasional beer He denies any substance abuse Physical Exam Vital Signs Vital Signs Date Time Temp Pulse Resp B/P Pulse Ox O2 Delivery O2 Flow Rate FiO2 12/08/16 16:00 64 16 152/85 97 Room Air 12/08/16 14:00 64 18 144/69 98 Room Air 12/08/16 12:00 78 18 165/82 95 Room Air 12/08/16 11:10 84 15 98 12/08/16 11:09 97.9 126/95 Physical Exam GENERAL: Awake alert oriented 3 in a very joyful mood SKIN: No rashes, ecchymoses or lesions. Cool and dry. HEAD: Atraumatic. Normocephalic. No temporal or scalp tenderness. EYES: Pupils equal round and reactive. Extraocular motions intact. No scleral icterus. ENT: Nose without bleeding,throat without erythema, tonsillar hypertrophy or exudate. Uvula midline. Airway patent. NECK: Trachea midline. No JVD or lymphadenopathy. Supple, nontender, no meningeal signs. No bruit CARDIOVASCULAR: Regular rate and rhythm , soft systolic murmur left sternal border RESPIRATORY: Clear to auscultation. Breath sounds equal bilaterally. No wheezes , rales, or rhonchi. GASTROINTESTINAL: Abdomen soft, non-tender, nondistended. No hepato-splenomegaly , or palpable masses. No guarding. MUSCULOSKELETAL: Extremities without clubbing, cyanosis, or edema. No joint tenderness, effusion, or edema noted. No calf tenderness. Negative Homans sign bilaterally. NEUROLOGICAL: Awake and alert. Oriented 3. Speech clear Cranial nerves II through XII intact. No facial asymmetry. Good gag reflex. Motor and sensory grossly within normal limits. Five out of 5 muscle strength in all muscle groups. Normal speech. Gait steady Laboratory Laboratory Tests Test 12/08/16 11:15 White Blood Count 10.3 Red Blood Count 5.02 Hemoglobin 15.6 Hematocrit 45.2 Mean Corpuscular Volume 89.9 Mean Corpuscular Hemoglobin 31.1 Mean Corpuscular Hemoglobin 34.6 Concent Red Cell Distribution Width 13.4 Platelet Count 192 Mean Platelet Volume 9.3 Neutrophils (%) (Auto) 62.5 Lymphocytes (%) (Auto) 25.1 Monocytes (%) (Auto) 8.3 Eosinophils (%) (Auto) 2.8 Basophils (%) (Auto) 1.3 Neutrophils # (Auto) 6.5 Lymphocytes # (Auto) 2.6 Monocytes # (Auto) 0.9 Eosinophils # (Auto) 0.3 Basophils # (Auto) 0.1 CBC Comment DIFF FINAL Differential Comment Prothrombin Time 10.7 Prothromb Time International 1.0 Ratio Activated Partial 27.2 Thromboplast Time Sodium Level 140 Potassium Level 4.2 Chloride Level 106 Carbon Dioxide Level 25.9 Anion Gap 8 Blood Urea Nitrogen 18 Creatinine 1.25 Estimat Glomerular Filtration 58 Rate Random Glucose 126 Calcium Level 9.0 Troponin I LESS THAN 0.02 Result Diagram: 12/08/16 1115 12/08/16 1115 Imaging Last Impressions Head CT 12/08/16 1111 Signed Impressions: Service Date/Time: Thursday, December 08, 2016 12:09 - CONCLUSION: 1. Chronic small vessel ischemic change. 2. No acute intracranial abnormality. Ck Padilal Jr., MD Chest X-Ray 12/08/16 1111 Signed Impressions: Service Date/Time: Thursday, December 08, 2016 11:25 - CONCLUSION: No acute disease. Kemal Prado MD FACR Carotid Artery Ultrasound 12/08/16 0000 Signed Impressions: Service Date/Time: Thursday, December 08, 2016 14:20 - CONCLUSION: Negative examination for a hemodynamically significant carotid stenosis. Kemal Prdao MD Assessment and Plan Assessment and Plan 66-year-old left-handed male presenting with left-sided weakness, facial asymmetry TIA rule out CVA presenting with left-sided mild weakness in mild aphasia. CT head negative. proceed with MRI of the head Neurology consult. Was on aspirin S/P outpatient . We'll start patient on Plavix 75 mg daily We'll get 2-D echo, carotid ultrasound, 24-hour Holter monitoring Get lipid panel, TSH, complete metabolic panel PTOT speech therapy consult in a.m. + reaction to statins History of hypertension. Will allow for permissive hypertension History of diabetes type 2 will get hemoglobin A1c. Insulins sliding scale History of COPD in remission we'll continue on metered-dose inhalers, duo nebs every 6 Lovenox for DVT prophylaxis Discussed Condition With Patient Shayne Schumacher MD Dec 08, 2016 17:32
[2016-12-08] MEDS ORDERED: DEXTROSE 50% IN WATER 50 ML VIAL(D50) IV PUSH PRN ×2 (17:45→19:45)
[2016-12-08] MEDS: CLOPIDOGREL 75 MG TAB PO SCH (17:45)
[2016-12-08] MEDS ORDERED: GLUCAGON 1 MG/ML VIAL OTHER PRN (17:45)
--- NOTE | 2016-12-08 19:00 | RADRPT ---
EXAM DATE/TIME: 12/08/2016 18:18 [facility] COMPARISON: No previous studies available for comparison. INDICATIONS : CVA. MEDICAL HISTORY : Diabetes mellitus type 2. Myocardial infarction. Hypertension. COPD, Kidney stones, Diverticulitis. SURGICAL HISTORY : Umbilical hernia repair. Carpal tunnel syndrome. Laminectomy L5/S1 ENCOUNTER: Initial ACUITY: 1 day PAIN SCORE: 1/10 LOCATION: Bilateral cranial TECHNIQUE: Multiplanar, multisequence MRI of the brain was performed without contrast. FINDINGS: Cortical and subcortical T2 hyperintensities are identified in the frontal and parietal regions. Thes e regions are associated with mild volume loss. There is no evidence of restricted diffusion. There is no subacute hemorrhage. Scattered periventricular white matter T2 hyperintensities are seen There is also mass effect. There are no transient fluid collections. CONCLUSION: Chronic cortical and white matter ischemic changes. No evidence of acute infarct, hemorrhage, mass or edema. Joo Fleming MD on December 08, 2016 at 18:55 Board Certified Radiologist. This report was verified electronically.
--- NOTE | 2016-12-08 19:01 | EC ---
Study Study Date:12/08/2016 STUDY CONCLUSIONS SUMMARY - Left ventricle: The cavity size was normal. Wall thickness was at the upper limits of normal. Systolic function was normal. The estimated ejection fraction was in the range of 50% to 55%. Wall motion was normal; there were no regional wall motion abnormalities. - Aortic valve: A bioprosthesis was present. Valve area: 1.96cm^2(VTI). Valve area: 2.03cm^2 (Vmax). If LV function is below 40, please consider prescribing an ACEI or ARB or document rationale for non-use. PROCEDURE DATA STUDY STATUS: Elective. Procedure: Transthoracic echocardiography. Image quality was fair. Scanning was performed from the parasternal, apical, and subcostal acoustic windows. Study completion: The patient tolerated the procedure well. Transthoracic echocardiography. M-mode, complete 2D, complete spectral Doppler, and color Doppler. Height: Height: 69in. Weight: Weight: 186.6lb. Body mass index: BMI: 27.6kg/m^2. Body surface area: BSA: 2.01m^2. Patient status: Inpatient. CARDIAC ANATOMY LEFT VENTRICLE: The cavity size was normal. Wall thickness was at the upper limits of normal. Systolic function was normal. The estimated ejection fraction was in the range of 50% to 55%. Wall motion was normal; there were no regional wall motion abnormalities. AORTIC VALVE: Normal thickness leaflets. A bioprosthesis was present. Doppler: Transvalvular velocity was within the normal range. There was no stenosis. No regurgitation. Valve area: 1.96cm^2(VTI). Indexed valve area: 0.98cm^2/m^2 (VTI). Valve area: 2.03cm^2 (Vmax). Indexed valve area: 1.01cm^2/m^2 (Vmax). Mean gradient: 5mm Hg (S). AORTA: Aortic root: The aortic root was normal in size. MITRAL VALVE: Structurally normal valve. Doppler: Transvalvular velocity was within the normal range. There was no evidence for stenosis. No regurgitation. LEFT ATRIUM: The atrium was normal in size. RIGHT VENTRICLE: The cavity size was normal. Wall thickness was normal. PULMONIC VALVE: Doppler: Transvalvular velocity was within the normal range. There was no evidence for stenosis. No regurgitation. TRICUSPID VALVE: Structurally normal valve. Doppler: Transvalvular velocity was within the normal range. No regurgitation. PULMONARY ARTERY: The main pulmonary artery was normal-sized. Systolic pressure was within the normal range. RIGHT ATRIUM: The atrium was normal in size. PERICARDIUM: There was no pericardial effusion. SYSTEMIC VEINS: Inferior vena cava: The vessel was normal in size. Patient weight: 186.6lb _Ejection fraction:_ 65-75% _Fractional shortening:_ 32% up to 5Kg 5-11.5Kg 11.6-22.9Kg 23-45Kg 45-57Kg Aortic Root 7-13 <17 13-22 17-27 17-27 LA diam 6-13 <23 24-38 33-47 37-40 RVID 10-17 7-15 7-15 7-18 8-17 LVIDd 12-22 <32 24-38 33-47 37-40 LVPW 2-4 3-6 5-7 6-8 7-8 IVS 2-4 3-6 5-7 6-8 7-8 BASIC MEASUREMENTS ADULT NORMAL Left ventricle LV internal dimension, ED, chordal 50.7 mm 43-52 level, PLAX LV internal dimension, ES, chordal *38.4 mm 23-38 level, PLAX Fractional shortening, chordal level, *24 % >29 PLAX LV posterior wall thickness, ED 9.22 mm IVS/LVPW ratio, ED 1.03 <1.3 Ventricular septum Septal thickness, ED 9.53 mm Aorta Root diameter, ED 38 mm Right ventricle RV internal dimension, ED, PLAX 31.1 mm 19-38 DOPPLER MEASUREMENTS ADULT NORMAL Aortic valve Peak velocity, S 138 cm/s Mean velocity, S 96.1 cm/s VTI, S 30 cm Mean gradient, S 5 mm Hg Valve area, VTI 1.96 cm^2 Valve area index, VTI 0.98 cm^2/m^2 Valve area, Vmax 2.03 cm^2 Valve area index, Vmax 1.01 cm^2/m^2 Pulmonic valve Peak velocity, S 62.4 cm/s LEGEND: Mean values are shown as u=mean value. Asterisk (*) smiley values outside specified normal range. Prepared and signed by Matilda Hernandez [id number]
[2016-12-08] MEDS ORDERED: GLUCAGON 1 MG/ML VIAL IM/SQ PRN ×2 (19:45)
[2016-12-08 20:00] VITALS: BP 167/95; PULSE 66; RESP 20; TEMP 96.3; O2SAT 94
[2016-12-08] MEDS: RESP: ALBUTEROL 2.5 MG/IPRATROPIUM 0.5 MG NEB (SCH) NEB (20:00)
[2016-12-08] MEDS ORDERED: INSULIN ASPART SUPPLEMENTAL SCALE SQ SCH (21:00)
[2016-12-08] MEDS ORDERED: SODIUM CHLORIDE 0.9% FLUSH 5 ML FLUSH IVF SCH ×2 (21:00)
[2016-12-08] MEDS: BUDESONIDE-FORMOTEROL 80/4.5 MCG INHALER INH SCH (23:44)
[2016-12-08] MEDS: GABAPENTIN 300 MG CAP PO SCH (23:45)
[2016-12-08] MEDS: INSULIN ASPART SUPPLEMENTAL SCALE SQ SCH (23:46)
[2016-12-09 00:37] VITALS: BP 120/64; PULSE 82; RESP 20; TEMP 96.4; O2SAT 94
[2016-12-09 04:00] VITALS: BP 127/86; PULSE 65; RESP 20; TEMP 97; O2SAT 94
[2016-12-09] MEDS: INSULIN ASPART SUPPLEMENTAL SCALE SQ SCH ×3 (06:28→16:00)
[2016-12-09 07:25] VITALS: BP 175/90; PULSE 70; RESP 19; TEMP 95.8; O2SAT 96
[2016-12-09] MEDS: RESP: ALBUTEROL 2.5 MG/IPRATROPIUM 0.5 MG NEB (SCH) NEB ×2 (08:00→13:53)
[2016-12-09 08:31] LABS: ALKALINE PHOSPHATASE 94 U/L (45-117); ALT (GPT) 16 U/L (12-78); ANION GAP 8 MEQ/L (5-15); AST (GOT) 14 U/L (15-37); BICARBONATE 26.3 MEQ/L (21.0-32.0); BLOOD UREA NITROGEN 15 MG/DL (7-18); CHLORIDE 107 MEQ/L (98-107); GLOMERULAR FILTRATION RATE 58 ML/MIN (>89); LDL CHOLESTEROL 144 MG/DL (0-99); POTASSIUM 4.2 MEQ/L (3.5-5.1); SODIUM (NA) 141 MEQ/L (136-145); TOTAL BILIRUBIN ADULT 0.3 MG/DL (0.2-1.0)
[2016-12-09] MEDS: CLOPIDOGREL 75 MG TAB PO SCH (09:00)
[2016-12-09] MEDS: GABAPENTIN 300 MG CAP PO SCH (09:30)
[2016-12-09] MEDS: BUDESONIDE-FORMOTEROL 80/4.5 MCG INHALER INH SCH (09:32)
[2016-12-09 12:00] VITALS: BP 130/78; PULSE 74; RESP 20; TEMP 97.2; O2SAT 95
[2016-12-09] MEDS ORDERED: LISINOPRIL 20 MG TAB PO SCH (15:00)
--- NOTE | 2016-12-09 15:01 | HHI.PR ---
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 Chronic small vessel ischemic change. 2. No acute intracranial abnormality. Ck Padilla Jr., MD Chest X-Ray 12/08/16 1111 Signed Impressions: Service Date/Time: Thursday, December 08, 2016 11:25 - CONCLUSION: No acute disease. Kemal Prado MD FACR Carotid Artery Ultrasound 12/08/16 0000 Signed Impressions: Service Date/Time: Thursday, December 08, 2016 14:20 - CONCLUSION: Negative examination for a hemodynamically significant carotid stenosis. Kemal Prado MD Brain MRI 12/08/16 0000 Signed Impressions: Service Date/Time: Thursday, December 08, 2016 18:18 - CONCLUSION: Chronic cortical and white matter ischemic changes. No evidence of acute infarct, hemorrhage, mass or edema. Joo Fleming MD Objective Remarks awake and alert, oriented x 3 anicteric lungs clear regular rhythm abdomen soft, nontender extremities no edema neuro exam unremarkable A/P Assessment and Plan 66-year-old left-handed male presenting with left-sided weakness, facial asymmetry TIA - symptoms resolved CT head negative. proceed with MRI of the head patient refused - Plavix coumadin, in the past also refused Pradaxa 2-D echo, carotid ultrasound- unremarkable PTOT speech therapy - up ambulating independently, speech clear History of hyperlipedemia + reaction to statins start Zetia 10 mg daily advise on strict low fat diet History of hypertension. restart his GATO and BB History of diabetes type 2 will get hemoglobin A1c- 6.4.- d/w him goals good readings here resume his home insulin regimen on DC- to d/w PCP- consider starting on once a day long acting insulin + reaction to metformin History of COPD in remission we'll continue on metered-dose inhalers, duo nebs every 6 will DC home home- patient is up and ambulating independent - does not need inpatient rehab DC today diet- heart healthy ADA Activity as tolerated weight bearing OP ff up with PCP- Huber- early next week FF up with Dr Walters - in 7-10 days Shayne Schumacher MD Dec 09, 2016 15:01
[2016-12-09 15:39] LABS: HEMOGLOBIN A1a 0.8 %; HEMOGLOBIN A1b 1.8 %; HEMOGLOBIN LA1C 2.3 %; HEMOGLOBIN P3 4.1 %
[2016-12-09] MEDS ORDERED: AGGR20025 PO (15:41)
[2016-12-09] MEDS ORDERED: ZETI10TA5 PO (15:41)
[2016-12-09] MEDS ORDERED: EZETIMIBE 10 MG TAB PO SCH (16:00)
[2016-12-09] MEDS ORDERED: DIPYRIDAMOLE/ASPIRIN 200 MG/25 MG CAP PO SCH (21:00)
--- NOTE | 2016-12-11 08:25 | MB ---
cc: NYDIA BAEZ M.D. DATE OF CONSULTATION: 12/08/2016 REASON FOR CONSULTATION TIA. HISTORY OF PRESENT ILLNESS Mr. Manriquez is a 66-year-old man with a history of aortic valve replacement as well as atrial fibrillation, previous stroke in the past with left-sided weakness. He states he came to the hospital because he had acute onset of increasing weakness, left facial droop, left arm and left leg was weak. He is now improved back to his baseline state. PAST MEDICAL HISTORY 1. States he has a history of atrial fibrillation. 2. History of aortic valve replacement with a porcine valve. 3. Type 2 diabetes. 4. COPD. 5. Previous stroke four years ago with residual left-sided weakness. 6. Diverticulitis. 7. In the chart there is a questionable history of multiple sclerosis, although this has never been documented. PAST SURGICAL HISTORY 1. L5-S1 laminectomy. 2. Umbilical hernia repair. 3. Facial reconstructive surgery. MEDICATIONS His medicines at home: 1. Symbicort. 2. Lisinopril. 3. Gabapentin. 4. Ventolin. 5. Ipratropium. 6. Carvedilol. 7. NovoLog insulin. 8. Aspirin 325 mg daily. ALLERGIES 1. HMG-COA REDUCTASE INHIBITORS. 2. HORSE SERUM PROTEINS. 3. METFORMIN. SOCIAL HISTORY He does smoke, drinks beer occasionally. Denies any other drug abuse. NEUROLOGIC EXAMINATION VITAL SIGNS: Blood pressure 162/85, pulse 64, respiratory rate 16, temperature 97 degrees. HIGHER CORTICAL FUNCTIONS: Normal. CRANIAL NERVES: Normal. MOTOR: At this time he has 5/5 strength bilaterally in both upper and lower extremities. There is no drift. Fine motor skills are normal. Reflexes are symmetric. There is no Babinski. IMAGING MRI of the brain: No acute change is present. There is chronic ischemic demyelinization seen. Carotid ultrasound: No evidence of any significant stenotic lesions. CT of the brain: Chronic ischemic change. No acute change present. No hemorrhage. LABORATORY White count 10,300, hemoglobin 15.6, hematocrit 45%, platelets 192,000. PT 10.7, INR 1, APTT 27.2. Sodium 140, potassium 4.2, chloride 106, CO2 25.9, BUN 18, creatinine 1.25, GFR 58, glucose 126. ECHOCARDIOGRAM Ejection fraction 50-55%. Wall motion of the left ventricle is normal. The aortic valve prosthetic valve is present. There is no regurgitation, no stenosis, no vegetation. The aortic root is normal. Mitral valve is normal. Left atrial size is normal. Right ventricle is normal. The pulmonic valve is normal. The tricuspid valve is normal. Pulmonary artery within normal range. Right atrial size is normal. Pericardium is normal. IMPRESSION Probable TIA. It is suspected that if he has a history of atrial fibrillation this would be the most likely cause. RECOMMENDATIONS I did recommend strongly to the patient that we start anticoagulation therapy, however, he refuses. He states that he does not want to be on any of the newer anticoagulants because of cost and also does not want to be on them because of the bleeding risk. He also states he does not want to be on Coumadin which he refers to as "rat poison." I spent a great deal of time discussing with him that he is at high risk for recurrent stroke unless he goes on an anticoagulant and that with proper monitoring the anticoagulants would be safe, however, he understands this but refuses. Plavix has been ordered in the ER. Will continue with that for the present time. Will also check a lipid panel. MD ADALBERTO Brooks/GEOFFREY /7:31 PM /8:11 AM
--- NOTE | 2016-12-13 18:54 | EKG ---
Date Performed: 12/08/2016 Time Performed: 11:16:19 PTAGE: 66 years EKG: Sinus rhythm NONSPECIFIC T-WAVE ABNORMALITY BORDERLINE ECG PREVIOUS TRACING : 10/17/2016 17.35 DOCTOR: Sloan Lott Interpretating Date/Time 12/13/2016 18:50:27
== END 2016-12-09 18:45 | disposition home or self-care (01) | DRG 69 ==
LOC: NEPE 11:08 → NEDA 13:02 → N05A 19:00
PROVIDERS: ADMIT Family Medicine; ATTEND Family Medicine
DX: G45.9 Transient cerebral ischemic attack, unspecified (principal); I69.354 Hemiplegia and hemiparesis following cerebral infarction affecting left non-dominant side; I48.91 Unspecified atrial fibrillation; J44.9 Chronic obstructive pulmonary disease, unspecified; E11.9 Type 2 diabetes mellitus without complications; I10 Essential (primary) hypertension; R47.01 Aphasia; R29.810 Facial weakness; R47.81 Slurred speech; J45.909 Unspecified asthma, uncomplicated; E78.00 Pure hypercholesterolemia, unspecified; I25.10 Atherosclerotic heart disease of native coronary artery without angina pectoris; Z87.442 Personal history of urinary calculi; I25.2 Old myocardial infarction; Z95.1 Presence of aortocoronary bypass graft; Z79.4 Long term (current) use of insulin; F17.210 Nicotine dependence, cigarettes, uncomplicated; E78.5 Hyperlipidemia, unspecified; Z79.82 Long term (current) use of aspirin; Z95.3 Presence of xenogenic heart valve
CPT/HCPCS: 70450; 70551; 71010; 80048; 80053; 80061; 82948; 83036; 84443; 84484; 85025; 85610; 85730; 93005; 93306; 93880; J1815; J7030

== ENCOUNTER 2018-11-21 06:08 | Inpatient (IN) ==
[2018-11-21] MEDS ORDERED: MethylPREDNISolone Sod Succinate Inj 125 MG/2 ML Vial IV.PUSH ONE (06:13)
--- NOTE | 2018-11-21 06:36 | ED ---
HPI General Chief Complaint: Respiratory Symptoms Stated Complaint: resp Time Seen by Provider: 11/21/18 06:13 Source: patient Mode of arrival: ambulatory Limitations: no limitations History of Present Illness HPI Narrative: 68-year-old male complains of shortness of breath. He arrives by EMS. Coughing for the past week is reported. Yellow phlegm is produced. Subjective fever reported. The patient is currently on day 5 of azithromycin course and is also receiving prednisone. The patient has COPD. He reports not smoking for the past week or so. Nebulizers at home with been somewhat helpful. Related Data Home Medications Medication Instructions Recorded Confirmed albuterol sulfate 1 puff INHALATION QID 11/05/18 11/21/18 aspirin 325 mg PO DAILY 11/05/18 11/21/18 buspirone 5 mg PO BID 11/05/18 11/21/18 carvedilol 25 mg PO BID 11/05/18 11/21/18 gabapentin 600 mg PO TID 11/05/18 11/21/18 lisinopril 20 mg PO DAILY 11/05/18 11/21/18 Allergies Allergy/AdvReac Type Severity Reaction Status Date / Time amlodipine Allergy Severe Twitching Verified 11/21/18 06:11 atorvastatin Allergy Severe Twitching Verified 11/21/18 06:11 Horse/Equine Containing Allergy Severe CHILDHOOD, Verified 11/21/18 06:11 Products DOESN'T REMEMBER. pravastatin Allergy Severe Twitching Verified 11/21/18 06:11 simvastatin Allergy Severe Twitching Verified 11/21/18 06:11 metformin Allergy Mild ITCHING/RYANN Verified 11/21/18 06:11 H Review of Systems ROS: all other systems reviewed are negative PMFSH Social History Social History Substance History: No History of Abuse Smoking Status: Former smoker Tobacco Type: Cigarettes How Often Do You Have a Drink Containing Alcohol: 2 to 4 times a month Recent Travel in [facility] within the Last 8 Weeks: No Recent Out of Country Travel within the Last 8 Weeks: No Immunization History Tetanus Immunization: Unsure Exam Narrative Exam Narrative: GENERAL: 68-year-old male well-nourished well-developed mild conversational dyspnea. SKIN: Focused skin assessment warm/dry. HEAD: Atraumatic. Normocephalic. EYES: Pupils equal and round. No scleral icterus. No injection or drainage. ENT: No nasal bleeding or discharge. Mucous membranes pink and moist. NECK: Trachea midline. No JVD. CARDIOVASCULAR: Heart rate is 100. it is regular. RESPIRATORY: Wheezing is present bilaterally. Respiratory rate about 24. GASTROINTESTINAL: Abdomen soft, non-tender, nondistended. Hepatic and splenic margins not palpable. MUSCULOSKELETAL: No obvious deformities. No clubbing. No cyanosis. No edema. NEUROLOGICAL: Awake and alert. No obvious cranial nerve deficits. Motor grossly within normal limits. Normal speech. PSYCHIATRIC: Appropriate mood and affect; insight and judgment normal. Course Initial Documented Vital Signs Pulse Oximetry 90 L 11/21/18 06:16 Last Documented Vital Signs Temperature 98.4 F 11/21/18 06:20 Pulse Rate 100 H 11/21/18 06:46 Respiratory Rate 22 11/21/18 06:46 Blood Pressure 116/71 11/21/18 06:20 Pulse Oximetry 92 L 11/21/18 06:26 Sign Out Sign Out Data: Patient Sign Out occurred on 11/21/18 at 07:08. Patient's care was discussed, and care was transferred from Deondre Gallegos MD to Paulette Diane MD. Sign Out Comment: Presentation concerning for influenza and/or pneumonia with COPD exacerbation Patient received albuterol x3 upon arrival as well as steroids. Last updated by Deondre Gallegos MD at 11/21/18 06:57 Post-Handoff Eval: 68-year-old male with COPD presents for evaluation of COPD exacerbation with failed outpatient treatment and currently requiring 4 L of oxygen. Patient desaturated to 89% while I was in the room while he was on 3 L nasal cannula. Laboratory work shows elevated white blood cell count which could be related to patient's recent steroid use. Otherwise laboratory values are consistent with previous results. Chest x-ray negative for pneumonia. Patient admitted to medicine for management of COPD exacerbation. Medical Decision Making MDM Narrative Medical decision making narrative: Albuterol started here. The patient received Solu-Medrol. Presentation is concerning for COPD exacerbation with the flu and/or a pneumonia. Medical Screen Exam Complete: Yes Emergency Medical Condition: Yes Lab Data Result diagrams: 11/21/18 06:30 11/21/18 06:30 Lab Results 11/21/18 11/21/18 11/21/18 Range/Units 06:30 06:30 06:30 WBC 20.9 H (4.0-11.0) th/mm3 RBC 4.53 (4.50-5.90) mil/mm3 Hgb 14.4 (13.0-17.0) gm/dL Hct 42.0 (39.0-51.0) % MCV 92.7 (80.0-100.0) fL MCH 31.7 (27.0-34.0) pg MCHC 34.2 (32.0-36.0) % RDW 13.0 (11.6-17.2) % Plt Count 259 D (150-450) th/mm3 MPV 9.4 (7.0-11.0) fL Prelim Diff (Auto) Slide review pending Neut % (Auto) 80.0 H (16.0-70.0) % Lymph % (Auto) 8.1 L (9.0-44.0) % [place] % (Auto) 11.0 H (0.0-8.0) % Eos % (Auto) 0.4 (0.0-4.0) % Baso % (Auto) 0.5 (0.0-2.0) % Neut # (Auto) 16.7 H (1.8-7.7) th/mm3 Lymph # (Auto) 1.7 (1.0-4.8) th/mm3 [place] # (Auto) 2.3 H (0.0-0.9) th/mm3 Eos # (Auto) 0.1 (0.0-0.4) th/mm3 Baso # (Auto) 0.1 (0.0-0.2) th/mm3 WBC Differential . Diff Scan Auto diff confirmed Differential Comment . Sodium 140 (136-145) meq/L Potassium 4.2 (3.5-5.1) meq/L Chloride 104 (98-107) meq/L Carbon Dioxide 26.4 (21.0-32.0) meq/L Anion Gap 10 (5-15) meq/L BUN 28 H (7-18) mg/dL Creatinine 1.37 H (0.60-1.30) mg/dL Estimated GFR 52 L (>89) mL/min Random Glucose 162 H (74-106) mg/dL Calcium 8.8 (8.5-10.1) mg/dL Total Bilirubin 0.6 (0.2-1.0) mg/dL AST 35 (15-37) U/L ALT 43 (12-78) U/L Alkaline Phosphatase 145 H (45-117) U/L Troponin I Less than 0.02 L (0.02-0.05) ng/mL B-Natriuretic Peptide 46 (0-100) pg/mL Total Protein 7.6 (6.4-8.2) g/dL Albumin 2.9 L (3.4-5.0) g/dL Imaging Data Radiologist's impression: Chest X-Ray 11/21/18 06:13 CONCLUSION: No acute disease Discharge Plan Discharge Disposition Patient Disposition: ED Admit(ED Internal Use Only) Discharge Condition Condition: Fair Discharge Order Discharge Orders: ED Use Only Admit Order (Routine); Ordered 11/21/18 Ordered By: Paulette Diane Physicians Team ED Provider: Paulette Diane Rxs /Orders / Referrals /Forms Prescriptions: No Action buspirone 5 mg Tablet 5 mg PO BID RF: 0 carvedilol 25 mg Tablet 25 mg PO BID RF: 0 gabapentin 600 mg Tablet 600 mg PO TID RF: 0 aspirin 325 mg Tablet 325 mg PO DAILY RF: 0 lisinopril 20 mg Tablet 20 mg PO DAILY RF: 0 albuterol sulfate 90 mcg/actuation Hfa Aerosol Inhaler 1 puff INHALATION QID RF: 0 Status ED Status: With Doctor
--- NOTE | 2018-11-21 06:37 | XR ---
EXAM DATE: 11/21/2018 6:26 AM EST AGE/SEX: 68 years / Male INDICATIONS: Shortness of breath. CLINICAL DATA: This is the patient's initial encounter. Patient reports that signs and symptoms have been present for 1 day and indicates a pain score of 0/10. MEDICAL/SURGICAL HISTORY: Chronic obstructive pulmonary disease. Hypertension. Diabetes melli tus type II. CABG. AVR. COMPARISON: [facility] – [place], CHEST 1V SINGLE AP, 11/05/2018. . FINDINGS: A single AP view of the chest demonstrates the lungs to be symmetrically aerated without evidence of mass, infiltrate or effusion. The cardiomediastinal contours are unremarkable. Osseous structures a re intact. CONCLUSION: No acute disease Electronically signed by: Leo Alegria MD Board Certified Radiologist 11/21/2018 6:36 AM EST
[2018-11-21 06:45] LABS: Baso # (Auto) 0.1 th/mm3 (0.0-0.2); Baso % (Auto) 0.5 % (0.0-2.0); Eos # (Auto) 0.1 th/mm3 (0.0-0.4); Eos % (Auto) 0.4 % (0.0-4.0); Hemoglobin 14.4 gm/dL (13.0-17.0); Lymph # (Auto) 1.7 th/mm3 (1.0-4.8); Lymph % (Auto) 8.1 % (9.0-44.0); Mean Corpuscular HGB Conc 34.2 % (32.0-36.0); Mean Corpuscular Hemoglobin 31.7 pg (27.0-34.0); Mean Corpuscular Volume 92.7 fL (80.0-100.0); Mean Platelet Volume 9.4 fL (7.0-11.0); Mono # (Auto) 2.3 th/mm3 (0.0-0.9); Neut # (Auto) 16.7 th/mm3 (1.8-7.7); Platelet Count 259 th/mm3 (150-450); Red Blood Count 4.53 mil/mm3 (4.50-5.90); White Blood Count 20.9 th/mm3 (4.0-11.0)
[2018-11-21 07:05] LABS: Alanine Aminotransferase 43 U/L (12-78); Albumin 2.9 g/dL (3.4-5.0); Anion Gap 10 meq/L (5-15); Aspartate Aminotransferase 35 U/L (15-37); Blood Urea Nitrogen 28 mg/dL (7-18); Calcium 8.8 mg/dL (8.5-10.1); Carbon Dioxide 26.4 meq/L (21.0-32.0); Chloride 104 meq/L (98-107); Glomerular Filtration Rate 52 mL/min (>89); Glucose,Random 162 mg/dL (74-106); Potassium 4.2 meq/L (3.5-5.1); Sodium 140 meq/L (136-145)
[2018-11-21 07:08] LABS: Alkaline Phosphatase 145 U/L (45-117); Total Protein 7.6 g/dL (6.4-8.2)
[2018-11-21] MEDS ORDERED: Bisacodyl 10 MG Supp RECTAL PRN (08:09)
[2018-11-21] MEDS ORDERED: Acetaminophen 325 MG Tablet PO PRN (08:09)
[2018-11-21] MEDS ORDERED: Sod Chloride 0.9% Inj 1,000 ML IV.CONT SCH (08:15)
--- NOTE | 2018-11-21 08:43 | CT ---
EXAM DATE: 11/21/2018 8:35 AM EST AGE/SEX: 68 years / Male INDICATIONS: Shortness of breath. CLINICAL DATA: This is the patient's initial encounter. Patient reports that signs and symptoms have been present for 1 day and indicates a pain score of 0/10. MEDICAL/SURGICAL HISTORY: Chronic obstructive pulmonary disease. Hypertension. Diabetes. A-fib. Aortic stenosis. CABG. Aortic valve replacement. RADIATION DOSE: 10.30 CTDI (mGy) [place] [facility] [place]. . TECHNIQUE: Volumetric scanning was performed using a multi-row detector CT scanner during bolus infu joce of 74 ml Omnipaque 350 (iohexol) nonionic water-soluble contrast as a single exam dose. The demario a was post processed with a variety of visualization algorithms including full volume maximum intensi ty projection and sliding thin slab reformation. Using automated exposure control and adjustment of t he mA and/or kV according to patient size, radiation dose was kept as low as reasonably achievable to obtain optimal diagnostic quality images. DICOM format image data is available electronically for r eview and comparison. FINDINGS: Pulmonary Arteries: No filling defects are seen in the pulmonary arteries out to the subsegmental ve ssels. The left and right pulmonary arteries are normal in diameter. Lung: Tree-in-bud type appearance involving the lungs bilaterally but more pronounced within the low er lobes. There is also cylindrical circumferential wall thickening involving the airways again more pronounced within the lower lobes. No significant bronchiectasis. There is a calcified granuloma with in the right upper lobe. No mass.. Effusion: None. Mediastinum: No evidence of mediastinal or hilar adenopathy. Heart is normal in size. Significant ao rtic valve calcifications observed. Aorta is normal in caliber. Other: The axilla is unremarkable. Median sternotomy wires. CONCLUSION: 1. No pulmonary emboli. 2. CT findings suggesting an infectious etiology with tree-in-bud type appearance as well as circumf erential peribronchial thickening. Electronically signed by: Ck Padilla MD Board Certified Radiologist 11/21/2018 8:42 AM EST
[2018-11-21] MEDS: Lisinopril 20 MG Tablet PO SCH (08:53)
[2018-11-21] MEDS: Heparin - SQ 10,000 UNITS/ML Vial SQ SCH ×2 (08:54→21:07)
[2018-11-21] MEDS: Gabapentin 300 MG Capsule PO SCH ×3 (08:54→17:45)
[2018-11-21] MEDS: Aspirin 325 MG Tablet PO SCH (08:54)
[2018-11-21] MEDS ORDERED: Carvedilol 6.25 MG Tablet PO SCH (09:00)
--- NOTE | 2018-11-21 11:28 | P.HPIM ---
History of Present Illness Service: [facility] Primary Care Physician: No Primary Care Physician Chief Complaint: SOB History of Present Illness: 68-year-old male with a medical history significant for COPD, hypertension, CAD status post CABG, who presented to the emergency room with complaint of worsening shortness of breath. Patient reports his symptoms has been ongoing for the past week. He has been having a productive cough with yellow phlegm. He also reports subjective fevers. He was seen outpatient and was given azithromycin and prednisone without improvement in his symptoms. He has been using nebulizers at home which provided minimal relief. He continued to smoke up until a week ago. Currently he denies chest pain. There has been no nausea or vomiting. Patient found to be hypoxemic in the emergency room and has been requiring oxygen. Inpatient Certification Inpatient Certification: I certify that the inpatient services were ordered in accordance with Medicare regulations governing the order. This includes certification that hospital inpatient services are reasonable and necessary and in the case of services not specified as inpatient-only under 42 CFR 419.22(n), that they are appropriately provided as inpatient services in accordance to with the 2-midnight benchmark under 43 CFR 412.3(e) Estimated Total Length of Stay (Days): 3 Plans for Post Hospital Care: Home Review of Systems Review of Systems: all other systems reviewed are negative [facility] Medical History Medical History Afib (Acute) Aortic stenosis (Acute) COPD (chronic obstructive pulmonary disease) (Acute) Diabetes (Acute) Hypertension (Acute) Surgical History Surgical History H/O aortic valve replacement (Acute) S/P CABG x 3 (Acute) Family History Family History Other Family history non-contributory Social History Social History Substance History: No History of Abuse Smoking Status: Former smoker Tobacco Type: Cigarettes How Often Do You Have a Drink Containing Alcohol: 2 to 4 times a month Recent Travel in [facility] within the Last 8 Weeks: No Recent Out of Country Travel within the Last 8 Weeks: No Immunization History Tetanus Immunization: Unsure Medications and Allergies Allergies Allergy/AdvReac Type Severity Reaction Status Date / Time amlodipine Allergy Severe Twitching Verified 11/21/18 06:11 atorvastatin Allergy Severe Twitching Verified 11/21/18 06:11 Horse/Equine Containing Allergy Severe CHILDHOOD, Verified 11/21/18 06:11 Products DOESN'T REMEMBER. pravastatin Allergy Severe Twitching Verified 11/21/18 06:11 simvastatin Allergy Severe Twitching Verified 11/21/18 06:11 metformin Allergy Mild ITCHING/RYANN Verified 11/21/18 06:11 H Home Medications Medication Instructions Recorded Confirmed Type albuterol sulfate 1 puff INHALATION QID 11/05/18 11/21/18 History aspirin 325 mg PO DAILY 11/05/18 11/21/18 History buspirone 5 mg PO BID 11/05/18 11/21/18 History carvedilol 12.5 mg PO BID 11/05/18 11/21/18 History gabapentin 600 mg PO TID 11/05/18 11/21/18 History lisinopril 20 mg PO DAILY 11/05/18 11/21/18 History Active Medications: Active Medications Acetaminophen (Tylenol) 650 mg PO Q4H PRN PRN Reason: Temp > 100.4 Al Hydroxide/Mg Hydroxide (Milk Of Gabrielle Delgadillo) 30 ml PO Q12H PRN PRN Reason: Mild Constipation Albuterol (Duoneb Neb (Ranjeet)) 1 ampul NEB Q6HR NEB [facility] Last Admin: 11/21/18 09:06 Dose: 1 ampul Albuterol (Albuterol Neb (Prn)) 2.5 mg NEB Q2HR NEB PRN PRN Reason: SHORTNESS OF BREATH Aspirin (Aspirin) 325 mg PO DAILY [facility] Last Admin: 11/21/18 08:54 Dose: 325 mg Bisacodyl (Dulcolax Supp) 10 mg RECTAL DAILY PRN PRN Reason: SEVERE CONSITIPATION Buspirone HCl (Buspar) 5 mg PO BID [facility] Last Admin: 11/21/18 08:54 Dose: 5 mg Carvedilol (Coreg) 12.5 mg PO BID [facility] Gabapentin (Neurontin) 600 mg PO TID [facility] Last Admin: 11/21/18 08:54 Dose: 600 mg Heparin Sodium (Porcine) (Heparin Inj) 5,000 units SQ Q12H [facility] Last Admin: 11/21/18 08:54 Dose: Not Given Sodium Chloride (Ns Inj) 1,000 mls @ 75 mls/hr IV.CONT .[id number] [facility] Stop: 11/21/18 21:34 Last Admin: 11/21/18 08:54 Dose: 75 mls/hr Lactulose (Lactulose Liq) 30 ml PO DAILY PRN PRN Reason: SEVERE CONSITIPATION Lisinopril (Prinivil) 20 mg PO DAILY [facility] Last Admin: 11/21/18 08:53 Dose: 20 mg Methylprednisolone Sodium Succinate (Solumedrol Inj) 60 mg IV.PUSH Q6H [facility] Ondansetron HCl (Zofran Inj) 4 mg IV.PUSH Q6H PRN PRN Reason: NAUSEA OR VOMITING Sennosides (Senokot) 17.2 mg PO Q12H PRN PRN Reason: Moderate Constipation Sodium Chloride (Ns Flush) 2 ml IV.FLUSH BID [facility] Last Admin: 11/21/18 08:55 Dose: 2 ml Sodium Chloride (Ns Flush) 2 ml IV.FLUSH PRN PRN PRN Reason: FLUSH AFTER USING IV ACCESS Temazepam (Restoril) 15 mg PO HS PRN PRN Reason: INSOMNIA Physical Exam Vital signs: Vital Signs 11/21/18 06:16 11/21/18 06:20 11/21/18 06:26 Temperature 98.4 F Pulse Rate 102 H 98 H Respiratory Rate 18 22 Blood Pressure 116/71 Pulse Oximetry 90 L 99 92 L 11/21/18 06:36 11/21/18 06:46 11/21/18 09:08 Temperature Pulse Rate 92 H 100 H Respiratory Rate 22 22 Blood Pressure Pulse Oximetry 93 L 11/21/18 09:09 Temperature Pulse Rate 83 Respiratory Rate 22 Blood Pressure Pulse Oximetry Narrative: GENERAL: This is a well-nourished, well-developed patient, in no apparent distress. CARDIOVASCULAR: Normal rate and regular rhythm without murmurs, gallops, or rubs. RESPIRATORY: Air movement is fair. Diffuse rhonchi, end expiratory wheezing. No crackles. GASTROINTESTINAL: Abdomen soft, non-tender, non-distended. Normal active bowel sounds MUSCULOSKELETAL: Extremities without cyanosis, or edema. NEURO: Alert & Oriented x4 to person, place, time, situation. Moves all ext x4 PSYCH: Appropriate mood and affect. Results Labs CBC & Chem 7: 11/21/18 06:30 11/21/18 06:30 Imaging Impressions Chest X-Ray 11/21/18 06:13 CONCLUSION: No acute disease Chest CTA 11/21/18 08:06 CONCLUSION: 1. No pulmonary emboli. 2. CT findings suggesting an infectious etiology with tree-in-bud type appearance as well as circumferential peribronchial thickening. Caprini VTE Risk Assessment Caprini VTE Risk Assessment: Moderate/High Risk (score >= 2) Caprini Risk Assessment Model: Point Value = 1 Point Value = 2 Point Value = 3 Point Value = 5 Age 41-60 Minor surgery BMI > 25 kg/m2 Swollen legs Varicose veins or History of unexplained or recurrent spontaneous Oral contraceptives or hormone replacement Sepsis (< 1 month) Serious lung disease, including pneumonia (< 1 month) Abnormal pulmonary function Acute myocardial infarction Congestive heart failure (< 1 month) History of inflammatory bowel disease Medical patient at bed rest Age 61-74 Arthroscopic surgery Major open surgery (> 45 min) Laparoscopic surgery (> 45 min) Malignancy Confined to bed (> 72 hours) Immobilizing plaster cast Central venous access Age >= 75 History of VTE Family history of VTE Factor V Leiden Prothrombin [id number] Lupus anticoagulant Anticardiolipin antibodies Elevated serum homocysteine Heparin-induced thrombocytopenia Other congenital or acquired thrombophilia Stroke (< 1 month) Elective arthroplasty Hip, pelvis, or leg fracture Acute spinal cord injury (< 1 month) Prophylaxis Regimen: Total Risk Factor Score Risk Level Prophylaxis Regimen 0-1 Low Early ambulation 2 Moderate Order ONE of the following: *Sequential Compression Device (SCD) *Heparin 5000 units SQ BID 3-4 Higher Order ONE of the following medications: *Heparin 5000 units SQ TID *Enoxaparin/Lovenox 40 mg SQ daily (WT < 150 kg, CrCl > 30 mL/min) *Enoxaparin/Lovenox 30 mg SQ daily (WT < 150 kg, CrCl > 10-29 mL/min) *Enoxaparin/Lovenox 30 mg SQ BID (WT < 150 kg, CrCl > 30 mL/min) AND/OR *Sequential Compression Device (SCD) 5 or more Highest Order ONE of the following medications: *Heparin 5000 units SQ TID (Preferred with Epidurals) *Enoxaparin/Lovenox 40 mg SQ daily (WT < 150 kg, CrCl > 30 mL/min) *Enoxaparin/Lovenox 30 mg SQ daily (WT < 150 kg, CrCl > 10-29 mL/min) *Enoxaparin/Lovenox 30 mg SQ BID (WT < 150 kg, CrCl > 30 mL/min) AND *Sequential Compression Device (SCD) Assessment and Plan Plan 68-year-old male admitted with acute COPD exacerbation, failed outpatient therapy. Acute on chronic respiratory failure secondary to acute COPD exacerbation: - Supplemental oxygen - Scheduled IV Solu-Medrol. - Incentive spirometry - We will obtain CTA of the chest to rule out PE and evaluate the lung parenchyma. - Incentive spirometry CAD status post CABG/hypertension: - Continue aspirin, carvedilol, and lisinopril Tobacco abuse: Patient reports he quit smoking about a week ago. He was counseled on complete cessation given his comorbid conditions above. GI prophylaxis: PPI. Stool softener PRN constipation. DVT PPx: Heparin
--- NOTE | 2018-11-21 11:38 | ECG ---
Date Performed: 11/21/2018 Time Performed: 06:06:57 PTAGE: 68 years EKG: SINUS TACHYCARDIA MODERATE T-WAVE ABNORMALITY, CONSIDER LATERAL ISCHEMIA ABNORMAL ECG [place] red to PREVIOUS TRACING , mild T-wave abnormality, may be due to LVH but is more prominent than the prior tracing and clinical correlation is needed. PREVIOUS TRACING DOCTOR: Alessandro Taveras Interpretating Date/Time 11/21/2018 11:35:10
[2018-11-21] MEDS: MethylPREDNISolone Sod Succinate Inj 40 MG/ML Vial IV.PUSH SCH ×2 (13:24→21:07)
[2018-11-21] MEDS: Azithromycin Inj 500 MG in Sodium Chlor 0.9% Inj 250 ML IV.SIG SCH (13:24)
[2018-11-21] MEDS: Carvedilol 12.5 MG Tablet PO SCH (21:07)
[2018-11-21] MEDS: Temazepam 15 MG Capsule PO PRN (22:44)
[2018-11-22] MEDS: MethylPREDNISolone Sod Succinate Inj 40 MG/ML Vial IV.PUSH SCH ×4 (02:19→20:28)
[2018-11-22 04:29] LABS: Baso # (Auto) 0.1 th/mm3 (0.0-0.2); Baso % (Auto) 0.4 % (0.0-2.0); Hematocrit 40.3 % (39.0-51.0); Hemoglobin 13.4 gm/dL (13.0-17.0); Lymph # (Auto) 0.8 th/mm3 (1.0-4.8); Lymph % (Auto) 4.9 % (9.0-44.0); Mean Corpuscular HGB Conc 33.3 % (32.0-36.0); Mean Corpuscular Volume 93.1 fL (80.0-100.0); Mean Platelet Volume 9.4 fL (7.0-11.0); Mono # (Auto) 0.6 th/mm3 (0.0-0.9); Mono % (Auto) 3.8 % (0.0-8.0); Neut # (Auto) 14.8 th/mm3 (1.8-7.7); Neut % (Auto) 90.9 % (16.0-70.0); Platelet Count 242 th/mm3 (150-450); Red Blood Count 4.32 mil/mm3 (4.50-5.90); Red Cell Distribution Width 12.7 % (11.6-17.2); White Blood Count 16.3 th/mm3 (4.0-11.0)
[2018-11-22 04:55] LABS: Calcium 8.9 mg/dL (8.5-10.1); Carbon Dioxide 28.3 meq/L (21.0-32.0)
[2018-11-22] MEDS: Aspirin 325 MG Tablet PO SCH (08:35)
[2018-11-22] MEDS: Heparin - SQ 10,000 UNITS/ML Vial SQ SCH ×2 (08:36→20:33)
[2018-11-22] MEDS: Carvedilol 12.5 MG Tablet PO SCH ×2 (08:36→20:29)
[2018-11-22] MEDS: Gabapentin 300 MG Capsule PO SCH ×3 (08:36→18:21)
[2018-11-22] MEDS: Lisinopril 20 MG Tablet PO SCH (08:36)
--- NOTE | 2018-11-22 11:49 | P.PNIM ---
Subjective Interval history: Patient reports he is feeling better today. He still requiring oxygen. He is coughing less and is breathing more comfortably. Physical Exam Vital signs: Vital Signs 11/21/18 12:00 11/21/18 12:26 11/21/18 12:35 Temperature 97.3 F L Pulse Rate 64 66 Respiratory Rate 17 17 20 Blood Pressure 102/54 L 117/66 Pulse Oximetry 93 L 95 11/21/18 15:37 11/21/18 16:00 11/21/18 16:35 Temperature 97.3 F L Pulse Rate 68 70 69 Respiratory Rate 17 18 Blood Pressure 111/65 Pulse Oximetry 94 L 11/21/18 19:44 11/21/18 20:00 11/21/18 20:55 Temperature 97.7 F Pulse Rate 78 82 75 Respiratory Rate 18 18 Blood Pressure 116/57 L Pulse Oximetry 96 96 11/22/18 00:00 11/22/18 01:19 11/22/18 04:00 Temperature 98.2 F Pulse Rate 63 64 79 Respiratory Rate 18 Blood Pressure 116/59 L Pulse Oximetry 94 L 11/22/18 05:20 11/22/18 05:51 11/22/18 08:00 Temperature 97.7 F 97.9 F Pulse Rate 76 71 70 Respiratory Rate 16 18 22 Blood Pressure 137/63 125/60 Pulse Oximetry 92 L 93 L Intake & Output 11/21/18 11/22/18 11/22/18 18:59 06:59 18:59 Intake Total 830 / 830 1880 / 1880 Output Total 700 / 700 875 / 875 Balance 130 / 130 1005 / 1005 Weight 80.1 kg 82.1 kg Intake: IV 350 / 350 1100 / 1100 NS Inj 1,000 ML @ 75 mls/hr IV. 1000 / 1000 CONT .[id number] QUETA Rx#:[id number] Azithromycin Inj 500 MG In NS 250 / 250 Inj 250 ML @ 250 mls/hr IV.SIG Q24H QUETA Rx#:[id number] Rocephin Inj 1,000 MG In NS Inj 100 / 100 100 / 100 100 ML @ 200 mls/hr IV.SIG Q12H QUETA Rx#:[id number] Oral 480 / 480 780 / 780 Output: Urine 700 / 700 875 / 875 Other: Date of Last Bowel Movement 11/19/18 11/19/18 Weight On Admission 80.1 kg Narrative: GENERAL: This is a well-nourished, well-developed patient, in no apparent distress. CARDIOVASCULAR: Normal rate and regular rhythm without murmurs, gallops, or rubs. RESPIRATORY: Air movement is fair. Diffuse rhonchi, end expiratory wheezing. No crackles. GASTROINTESTINAL: Abdomen soft, non-tender, non-distended. Normal active bowel sounds MUSCULOSKELETAL: Extremities without cyanosis, or edema. NEURO: Alert & Oriented x4 to person, place, time, situation. Moves all ext x4 PSYCH: Appropriate mood and affect. Results Labs CBC & Chem 7: 11/22/18 03:49 11/22/18 03:49 Labs: Microbiology 11/21/18 19:00 Sputum - Expectorated Sputum Gram Stain - Final 11/21/18 06:30 Blood - Peripheral Aerobic Blood Culture - Preliminary No growth in 1 day 11/21/18 06:30 Blood - Peripheral Anaerobic Blood Culture - Preliminary No growth in 1 day 11/21/18 06:30 Nasal Wash Influenza Types A,B Antigen - Final Negative for FLU A and B antigen Infection due to influenza A or B cannot be ruled out since the antigen present in the sample may be below the detection limit of the test. Assessment and Plan Plan 68-year-old male admitted with acute COPD exacerbation, pneumonia, failed outpatient therapy. Acute on chronic respiratory failure secondary to acute COPD exacerbation, pneumonia: - Supplemental oxygen - Scheduled IV Solu-Medrol. - Incentive spirometry - CT of the chest consistent with infectious etiology. - Continue Rocephin and azithromycin. - Incentive spirometry CAD status post CABG/hypertension: - Continue aspirin, carvedilol, and lisinopril Tobacco abuse: Patient reports he quit smoking about a week ago. He was counseled on complete cessation given his comorbid conditions above. GI prophylaxis: PPI. Stool softener PRN constipation. DVT PPx: Heparin Dispo: Continue treatment as above. He is improving. Attempt to wean off oxygen. If he can be weaned off oxygen, will consider discharge home tomorrow. Progress Note: Quality VTE Deep Vein Thrombosis/Pulmonary Embolism Present on Admission: No
[2018-11-22] MEDS: Azithromycin Inj 500 MG in Sodium Chlor 0.9% Inj 250 ML IV.SIG SCH (13:30)
[2018-11-22] MEDS: Temazepam 15 MG Capsule PO PRN (20:29)
[2018-11-23] MEDS: MethylPREDNISolone Sod Succinate Inj 40 MG/ML Vial IV.PUSH SCH ×4 (01:12→20:33)
[2018-11-23] MEDS: Aspirin 325 MG Tablet PO SCH (08:53)
[2018-11-23] MEDS: Gabapentin 300 MG Capsule PO SCH ×3 (08:54→18:33)
[2018-11-23] MEDS: Heparin - SQ 10,000 UNITS/ML Vial SQ SCH ×2 (08:56→20:33)
[2018-11-23] MEDS: Carvedilol 12.5 MG Tablet PO SCH ×2 (08:57→20:33)
[2018-11-23] MEDS: Lisinopril 20 MG Tablet PO SCH (08:57)
--- NOTE | 2018-11-23 09:52 | P.PNIM ---
Subjective Interval history: Patient with as he is still short of breath and not ready to go home. He reports some wheezing and dry cough. No complaint of chest pain. No fevers or chills. States that if he needs oxygen he needs portability. He is hoping not to go home on oxygen. Physical Exam Vital signs: Vital Signs 11/22/18 12:00 11/22/18 12:30 11/22/18 15:53 Temperature 97.4 F L Pulse Rate 69 65 76 Respiratory Rate 20 20 22 Blood Pressure 109/57 L Pulse Oximetry 94 L 11/22/18 16:00 11/22/18 20:00 11/22/18 20:03 Temperature 97.2 F L 97.6 F Pulse Rate 69 88 80 Respiratory Rate 20 18 16 Blood Pressure 128/63 124/60 Pulse Oximetry 93 L 93 L 11/23/18 00:00 11/23/18 02:11 11/23/18 04:00 Temperature 97.3 F L 97.2 F L Pulse Rate 57 L 67 67 Respiratory Rate 17 16 19 Blood Pressure 122/57 L 128/58 L Pulse Oximetry 94 L 92 L 11/23/18 04:07 11/23/18 08:00 Temperature 97 F L Pulse Rate 79 50 L Respiratory Rate 16 20 Blood Pressure 168/70 H Pulse Oximetry 94 L Intake & Output 11/22/18 11/23/18 11/23/18 18:59 06:59 18:59 Intake Total 1310 / 1310 1060 / 1060 Output Total 1000 / 1000 800 / 800 Balance 310 / 310 260 / 260 Weight 81.8 kg Intake: IV 350 / 350 100 / 100 Azithromycin Inj 500 MG In NS 250 / 250 Inj 250 ML @ 250 mls/hr IV.SIG Q24H [facility] Rx#:[id number] Rocephin Inj 1,000 MG In NS Inj 100 / 100 100 / 100 100 ML @ 200 mls/hr IV.SIG Q12H [facility] Rx#:[id number] Oral 960 / 960 960 / 960 Output: Urine 1000 / 1000 800 / 800 Other: # Bowel Movements 1 Narrative: GENERAL: This is a well-nourished, well-developed patient, in no apparent distress. CARDIOVASCULAR: Normal rate and regular rhythm without murmurs, gallops, or rubs. RESPIRATORY: Air movement is fair. Diffuse rhonchi, end expiratory wheezing. GASTROINTESTINAL: Abdomen soft, non-tender, non-distended. Normal active bowel sounds MUSCULOSKELETAL: Extremities without cyanosis, or edema. NEURO: Alert & Oriented x4 to person, place, time, situation. Moves all ext x4 Results Labs CBC & Chem 7: 11/22/18 03:49 11/22/18 03:49 Labs: Microbiology 11/21/18 19:00 Sputum - Expectorated Sputum Gram Stain - Final 11/21/18 19:00 Sputum - Expectorated Sputum Sputum Culture - Preliminary Immature growth - reincubate 11/21/18 06:30 Blood - Peripheral Aerobic Blood Culture - Preliminary No growth in 1 day 11/21/18 06:30 Blood - Peripheral Anaerobic Blood Culture - Preliminary No growth in 1 day Assessment and Plan Plan 68-year-old male admitted with acute COPD exacerbation, pneumonia, failed outpatient therapy. Acute on chronic respiratory failure secondary to acute COPD exacerbation, community acquired pneumonia: - Supplemental oxygen, continue to wean as tolerated - Scheduled IV Solu-Medrol. -Encourage incentive spirometry - CT of the chest consistent with infectious etiology. - Continue IV Rocephin and azithromycin. -Walk test today Hyperglycemialikely due to steroids, blood sugar check with sliding scale coverage CAD status post CABG/hypertension: - Continue aspirin, carvedilol, and lisinopril Leukocytosis due to infection and steroids, trending down. Tobacco abuse: Patient reports he quit smoking about a week ago. He was counseled on complete cessation given his comorbid conditions above. GI prophylaxis: PPI. Stool softener PRN constipation. DVT prophylaxis: Heparin Progress Note: Quality VTE Deep Vein Thrombosis/Pulmonary Embolism Present on Admission: No
[2018-11-23] MEDS ORDERED: Dextrose 50% in Water 50 ML Vial IV.PUSH PRN (09:54)
[2018-11-23 10:41] LABS: Hematocrit 40.2 % (39.0-51.0); Hemoglobin 13.1 gm/dL (13.0-17.0); Mean Corpuscular HGB Conc 32.6 % (32.0-36.0); Mean Corpuscular Hemoglobin 30.6 pg (27.0-34.0); Mean Corpuscular Volume 93.9 fL (80.0-100.0); Mean Platelet Volume 9.6 fL (7.0-11.0); Platelet Count 274 th/mm3 (150-450); Red Blood Count 4.29 mil/mm3 (4.50-5.90); Red Cell Distribution Width 12.9 % (11.6-17.2); White Blood Count 23.4 th/mm3 (4.0-11.0)
[2018-11-23 11:21] LABS: Calcium 8.6 mg/dL (8.5-10.1); Carbon Dioxide 27.7 meq/L (21.0-32.0); Potassium 4.6 meq/L (3.5-5.1)
[2018-11-23] MEDS: Azithromycin Inj 500 MG in Sodium Chlor 0.9% Inj 250 ML IV.SIG SCH (13:01)
[2018-11-23] MEDS: Insulin NovoLOG Aspart Correctional Sugar Inj SQ SCH ×3 (13:09→20:34)
[2018-11-24] MEDS: MethylPREDNISolone Sod Succinate Inj 40 MG/ML Vial IV.PUSH SCH ×3 (01:52→14:27)
[2018-11-24] MEDS ORDERED: Azithromycin 250 MG Tablet PO SCH (09:00)
[2018-11-24 09:19] VITALS: TEMP 97.5
[2018-11-24] MEDS: Gabapentin 300 MG Capsule PO SCH ×2 (09:23→14:27)
[2018-11-24] MEDS: Lisinopril 20 MG Tablet PO SCH (09:23)
[2018-11-24] MEDS: Aspirin 325 MG Tablet PO SCH (09:23)
[2018-11-24] MEDS: Carvedilol 12.5 MG Tablet PO SCH (09:23)
[2018-11-24] MEDS: Heparin - SQ 10,000 UNITS/ML Vial SQ SCH (09:24)
[2018-11-24] MEDS: Insulin NovoLOG Aspart Correctional Sugar Inj SQ SCH ×2 (09:24→13:18)
--- NOTE | 2018-11-24 11:10 | P.PNIM ---
Subjective Interval history: Reports that he has a nebulizer machine at home and does have medications. He is feeling better no active shortness of breath. No fevers or chills. Understand that he will need oxygen for home. Physical Exam Vital signs: Vital Signs 11/23/18 11:49 11/23/18 12:00 11/23/18 15:53 Temperature 98 F Pulse Rate 68 58 L Respiratory Rate 20 16 Blood Pressure 150/64 H Pulse Oximetry 94 L Pulse Oximetry [Exertion on Room Air] 87 L Pulse Oximetry [Exertion with Oxygen] 95 Pulse Oximetry [Resting on Room Air] 93 L Pulse Oximetry [Resting with Oxygen] 96 11/23/18 16:00 11/23/18 20:00 11/23/18 20:20 Temperature 97 F L 98 F Pulse Rate 59 L 68 72 Respiratory Rate 18 15 18 Blood Pressure 134/61 160/73 H Pulse Oximetry 97 97 92 L Pulse Oximetry [Exertion on Room Air] Pulse Oximetry [Exertion with Oxygen] Pulse Oximetry [Resting on Room Air] Pulse Oximetry [Resting with Oxygen] 11/24/18 00:00 11/24/18 03:20 11/24/18 04:00 Temperature 97.4 F L 97.9 F Pulse Rate 62 57 L 62 Respiratory Rate 18 24 16 Blood Pressure 148/98 H 142/86 H Pulse Oximetry 94 L 96 Pulse Oximetry [Exertion on Room Air] Pulse Oximetry [Exertion with Oxygen] Pulse Oximetry [Resting on Room Air] Pulse Oximetry [Resting with Oxygen] 11/24/18 08:00 11/24/18 08:35 11/24/18 09:05 Temperature 97.5 F L Pulse Rate 59 L 66 64 Respiratory Rate 18 18 Blood Pressure 163/79 H Pulse Oximetry 93 L 95 Pulse Oximetry [Exertion on Room Air] Pulse Oximetry [Exertion with Oxygen] Pulse Oximetry [Resting on Room Air] Pulse Oximetry [Resting with Oxygen] Intake & Output 11/23/18 11/24/18 11/24/18 18:59 06:59 18:59 Intake Total 1070 / 1070 340 / 340 Output Total 800 / 800 Balance 1070 / 1070 -460 / -460 Weight 82.3 kg Intake: IV 350 / 350 100 / 100 Azithromycin Inj 500 MG In NS 250 / 250 Inj 250 ML @ 250 mls/hr IV.SIG Q24H [facility] Rx#:[id number] Rocephin Inj 1,000 MG In NS Inj 100 / 100 100 / 100 100 ML @ 200 mls/hr IV.SIG Q12H [facility] Rx#:[id number] Oral 720 / 720 240 / 240 Output: Urine 800 / 800 Other: Post Void Residual 1,000 Date of Last Bowel Movement 11/23/18 Narrative: GENERAL: This is a well-nourished, well-developed patient, in no apparent distress. CARDIOVASCULAR: Normal rate and regular rhythm without murmurs, gallops, or rubs. RESPIRATORY: Air movement is fair. Few end expiratory wheezing bibasilar. GASTROINTESTINAL: Abdomen soft, non-tender, non-distended. Normal active bowel sounds MUSCULOSKELETAL: Extremities without cyanosis, or edema. NEURO: Alert & Oriented x4 to person, place, time, situation. Moves all ext x4 Results Labs CBC & Chem 7: 11/23/18 09:46 11/23/18 09:46 Labs: Microbiology 11/21/18 06:30 Blood - Peripheral Aerobic Blood Culture - Preliminary No growth in 3 days 11/21/18 06:30 Blood - Peripheral Anaerobic Blood Culture - Preliminary No growth in 3 days 11/21/18 19:00 Sputum - Expectorated Sputum Gram Stain - Final 11/21/18 19:00 Sputum - Expectorated Sputum Sputum Culture - Final Heavy growth normal respiratory desire Assessment and Plan Plan 68-year-old male admitted with acute COPD exacerbation, pneumonia, failed outpatient therapy. Acute on chronic respiratory failure secondary to acute COPD exacerbation, community acquired pneumonia: - Supplemental oxygen, continue to wean as tolerated from 4 L to 2 L - Scheduled IV Solu-Medrol and will transition to p.o. prednisone. -Encourage incentive spirometry - CT of the chest consistent with infectious etiology. - Continue IV Rocephin and azithromycin. -Walk test yesterday reveals room air 87 %, while need to arrange home O2 upon discharge. Hyperglycemialikely due to steroids, blood sugar check with sliding scale coverage CAD status post CABG/hypertension: - Continue aspirin, carvedilol, and lisinopril Leukocytosis due to infection and steroids, trending down. Tobacco abuse: Patient reports he quit smoking about a week ago. He was counseled on complete cessation given his comorbid conditions above. GI prophylaxis: PPI. Stool softener PRN constipation. DVT prophylaxis: Heparin Discharge planning with home O2 today if able to wean oxygen from 4-2 L. Progress Note: Quality VTE Deep Vein Thrombosis/Pulmonary Embolism Present on Admission: No
[2018-11-24 13:54] VITALS: BP 113/66; PULSE 65; RESP 16; O2SAT 94
--- NOTE | 2018-11-24 14:19 | P.DS ---
DS: Providers Date of admission: 11/21/18 08:01 Primary care physician: No Primary Care Physician Consults: 11/21/18 09:37 HUB Only Consult Order Routine Consulting Provider: Carola Srivastava Brief History from admission: 68-year-old male with a medical history significant for COPD, hypertension, CAD status post CABG, who presented to the emergency room with complaint of worsening shortness of breath. Patient reports his symptoms has been ongoing for the past week. He has been having a productive cough with yellow phlegm. He also reports subjective fevers. He was seen outpatient and was given azithromycin and prednisone without improvement in his symptoms. He has been using nebulizers at home which provided minimal relief. He continued to smoke up until a week ago. Currently he denies chest pain. There has been no nausea or vomiting. Patient found to be hypoxemic in the emergency room and has been requiring oxygen. DS: Diagnosis Discharge Diagnosis (1) Acute respiratory failure with hypoxia: Status: Resolved Diagnosis: Principal (2) COPD exacerbation: Status: Acute Diagnosis: Principal (3) Community acquired bacterial pneumonia: Status: Acute Diagnosis: Secondary DS: Summary 68-year-old white male admitted for acute respiratory failure secondary to COPD exacerbation with hypoxemia requiring 4 L of oxygen and was found to have community acquired pneumonia. He was placed on IV ceftriaxone and azithromycin , IV Solu-Medrol, DuoNeb treatment encourage incentive spirometry use. His home medication was continued. He was counseled on tobacco cessation. He clinically improved on IV antibiotics and supportive care. Patient was able to be weaned from 4 L to 2 L and qualified for continued home oxygen. At this time , we will transition patient home on oral antibiotics, steroid taper and home O2. Time Spent with Patient Total time spent providing and/or coordinating discharge services: Less than 30 minutes Specific discharge activities: Coordination with case management for home oxygen needs, discussion with respiratory therapist and nursing staff concerning walk test and clinical status and oxygen support. Quality: VTE Deep Vein Thrombosis/Pulmonary Embolism Present on Admission: No Results Procedures completed during hospitalization: none Labs on day of discharge: Labs from last 24 hours 11/24/18 11/23/18 11/23/18 13:15 19:38 18:25 POC Glucose 334 H 293 H 230 H Preliminary micro results at discharge 11/21/18 06:30 Aerobic Blood Culture - Preliminary Blood - Peripheral No growth in 3 days Anaerobic Blood Culture - Preliminary No growth in 3 days Impressions ITS Impressions Chest X-Ray 11/21/18 06:13 CONCLUSION: No acute disease Chest CTA 11/21/18 08:06 CONCLUSION: 1. No pulmonary emboli. 2. CT findings suggesting an infectious etiology with tree-in-bud type appearance as well as circumferential peribronchial thickening. Discharge Plan Discharge Disposition Patient Disposition: 01 Discharge Home Discharge Condition Condition: Fair Discharge Order Discharge Orders: Discharge Order (Routine); Ordered 11/24/18 Ordered By: Patel Berg Physicians Team Primary Care Provider: Primary Peyton Ortiz Attending Provider: Patel Berg Other Providers: Carola Srivastava Rxs /Orders / Referrals /Forms Prescriptions: New prednisone 20 mg tablet 20 mg PO BID Qty: 11 RF: 0 azithromycin 600 mg tablet 600 mg PO DAILY Qty: 3 RF: 0 cefdinir 300 mg capsule 300 mg PO BID Qty: 14 RF: 0 Continue buspirone 5 mg Tablet 5 mg PO BID RF: 0 carvedilol 25 mg Tablet 12.5 mg PO BID RF: 0 gabapentin 600 mg Tablet 600 mg PO TID RF: 0 aspirin 325 mg Tablet 325 mg PO DAILY RF: 0 lisinopril 20 mg Tablet 20 mg PO DAILY RF: 0 albuterol sulfate 90 mcg/actuation Hfa Aerosol Inhaler 1 puff INHALATION QID RF: 0 Ambulatory Orders / Order Sets / DME: Oxygen Tank (2 liter) (Routine) Location: Determined by Patient Ordered By: Patel Berg Referrals: Primary Care Provider [Outside] - See Instructions ( Please call the physician's office to book the appointment to be seen within 1 week.) Primary Care Peyton Mcdermott [Primary Care Provider] - See Instructions (CALL [facility] FOR A FOLLOW UP APPOINTMENT AT [phone] (NEED MEDICAL RECORD INFORMATION)) Post Discharge Care Plan Care Plan Goals: Discharge Care Plan Goals for COPD You have been diagnosed with chronic obstructive pulmonary disease (COPD). This is a name given to a group of diseases that limit the flow of air in and out of your lungs. This makes it harder to breathe. With COPD, you are also more likely to get lung infections. COPD includes chronic bronchitis and emphysema. COPD is most often caused by heavy, long-term cigarette smoking. Directions to Meet your Goals: 1. Quit smoking: * If you smoke, quit. It is the best thing you can do for your COPD and your overall health. * Join a stop-smoking program. There are even telephone, text message, and Internet programs to help you quit. * Ask your doctor about medicines or other methods to help you quit. * Ask family members to quit smoking as well. * Don't allow people to smoke in your home, in your car, or when they are around you. 2. Protect yourself from infection: * Wash your hands often. Do your best to keep your hands away from your face. Most germs are spread from your hands to your mouth. * Get a flu shot every year. Also ask your provider about pneumonia vaccines. * Avoid crowds. It's especially important to do this in the winter when more people have colds and flu. * To stay healthy, get enough sleep, exercise regularly, and eat a balanced diet. You should: -Get about 8 hours of sleep every night. -Try to exercise for at least 30 minutes on most days. -Have healthy foods including fruits and vegetables, 100% whole grains, lean meats and fish, and low-fat dairy products. -Try to stay away from foods high in fats and sugar. 3. Take your medicines: * Take your medicines exactly as directed. Don't skip doses. 4. Manage you stress: Stress can make COPD worse. Use this stress management technique: * Find a quiet place and sit or lie in a comfortable position. * Close your eyes and perform breathing exercises for several minutes. 5. Pulmonary rehabilitation: * Pulmonary rehab can help you feel better. These programs include exercise, breathing techniques, information about COPD, counseling, and help for smokers. * Ask your doctor or your local hospital about programs in your area. 6. When to call your doctor: Call doctor immediately if you have any of the following: Shortness of breath, wheezing, or coughing Increased mucus Yellow, green, bloody, or smelly mucus Fever or chills Tightness in your chest that does not go away with rest or medicine An irregular heartbeat or a feeling that your heart is beating very fast Swollen ankles 7. Follow-up: Do Not miss your follow-up appointment. Keep up with all your appointments and yearly check ups Discharge Care Plan Goals for Pneumonia You have been diagnosed with pneumonia. This is a serious lung infection. Most cases of pneumonia are caused by bacteria. Pneumonia most often occurs in older adults, young children, and people with chronic health problems. Directions to Meet your Goals: 1. Home care: * Take your medicine exactly as directed. Dont skip doses. Continue taking your antibiotics as until they are all gone, even if you start to feel better. This will prevent the pneumonia from coming back. * Drink at least 8 glasses of water daily, unless directed otherwise. This helps to loosen and thin secretions so that you can cough them up. * Use a cool-mist humidifier in your bedroom. Be sure to clean the humidifier daily. * Dont use medicines to suppress your cough unless your cough is dry, painful, or interferes with your sleep. Coughing up mucus is normal. You may use an expectorant if your doctor says its okay. * You can use warm compresses or a heating pad on the lowest setting to relieve chest discomfort. Use several times a day for 15-20 minutes at a time. To prevent injury to your skin, set the temperature to warm, not hot. Dont put the compress or pad directly on your skin. Make certain it has a cover or wrap it in a towel. This is to prevent skin rojas. * Get plenty of rest until your fever, shortness of breath, and chest pain go away. * Plan to get a flu shot every year. The flu is a common cause of pneumonia. Getting a flu shot every year can help prevent both the flu and pneumonia. 2. Getting the pneumococcal vaccine: * Talk with your doctor about getting the pneumococcal vaccine. Pneumococcal pneumonia is caused by bacteria that spread from person to person. It can cause minor problems, such as ear infections. But it can also turn into life- threatening illnesses of the lungs (pneumonia), the covering of the brain and spinal cord (meningitis), and the blood (bacteremia). * Make sure to ask your doctor if you should have the vaccine. Children under 2 years of age, adults over age 65, people with certain health conditions, and smokers are at the highest risk of pneumococcal disease. This vaccine can help prevent pneumococcal disease in both adults and children. 3. Follow-up care: Do Not miss your follow-up appointment. Keep up with all your appointments and yearly check ups 4. When to call your doctor: Call your doctor immediately if you have any of the following: Fever of 100.4F (38C) or higher, or as directed by your healthcare provider Mucus from the lungs (sputum) thats yellow, green, bloody, or smells bad Vomiting Any symptoms that get worse 5. Call 911: Call 911 right away if you have any of the following: Chest pain Trouble breathing Blue lips or fingernails Status ED Status: Left Department
== END 2018-11-24 17:19 | disposition home or self-care (01) | DRG 193 ==
LOC: NEPE 06:08 → NEDA 08:01 → N04 12:32
PROVIDERS: ADMIT Family Medicine; ATTEND Family Medicine
DX: J44.0 Chronic obstructive pulmonary disease with (acute) lower respiratory infection; E11.9 Type 2 diabetes mellitus without complications; J44.1 Chronic obstructive pulmonary disease with (acute) exacerbation; I25.10 Atherosclerotic heart disease of native coronary artery without angina pectoris; J96.21 Acute and chronic respiratory failure with hypoxia; F17.210 Nicotine dependence, cigarettes, uncomplicated; J18.9 Pneumonia, unspecified organism; I10 Essential (primary) hypertension; Z95.2 Presence of prosthetic heart valve; Z95.1 Presence of aortocoronary bypass graft; I48.91 Unspecified atrial fibrillation
CPT/HCPCS: 71010; 71045; 71275; 80048; 80053; 82948; 82962; 83520; 83880; 84484; 85025; 85027; 87040; 87070; 87205; 87275; 87276; 87804; 90774; 90784; 93005; 94150; 94618; 94620; 94640; 94664; 94665; 96374; 99285; C8952; J0456; J0696; J1815; J2920; J2930; J7030; J7050; Q9967